=== PATIENT | female | born 1960 | race Caucasian/White ===

== ENCOUNTER 2021-01-05 12:51 | Inpatient (IN) | payer OTHER ==
[2021-01-05 13:51] LABS: Basophils % (A) 0 %; Eosinophils # (A) 0.1 k/uL (0-0.7); Eosinophils % (A) 1 %; HCT 48.5 % (34.0-46.0); HGB 16.1 gm/dL (11.4-16.0); Lymphocytes % (A) 17 %; MCH 29.8 pg (25.0-35.0); MCHC 33.3 g/dL (31.0-37.0); MCV 89.6 fL (80.0-100.0); Mean Platelet Volume 7.1; Monocytes # (A) 0.6 k/uL (0-1.0); Monocytes % (A) 5 %; Neutrophils # (A) 9.2 k/uL (1.3-7.7); Neutrophils % (A) 77 %; Platelet Count 343 k/uL (150-450); RBC 5.41 m/uL (3.80-5.40); RDW 14.4 % (11.5-15.5)
[2021-01-05 14:06] LABS: ALT 16 U/L (4-34); AST 26 U/L (14-36); African American GFR (CKD) >90 (>60 ml/min/1.73 sqM); Albumin 4.6 g/dL (3.5-5.0); Alkaline Phosphatase 135 U/L (38-126); Anion Gap 11 mmol/L; Blood Urea Nitrogen 9 mg/dL (7-17); Calcium 10.3 mg/dL (8.4-10.2); Carbon Dioxide 21 mmol/L (22-30); Chloride 103 mmol/L (98-107); Glucose 236 mg/dL (74-99); Non-African American GFR(CKD) >90 (>60 ml/min/1.73 sqM); Sodium 135 mmol/L (137-145); Total Bilirubin 0.5 mg/dL (0.2-1.3); Total Protein 7.8 g/dL (6.3-8.2)
[2021-01-05 14:17] LABS: Prothrombin Time 10.2 sec (9.0-12.0)
[2021-01-05] MEDS ORDERED: ASPIRIN 81 MG PO STA (15:07)
--- NOTE | 2021-01-05 15:09 | ED ---
General Adult HPI - General Chief complaint: Recheck/Abnormal Lab/Rx Stated complaint: Abn EKG/ Cardiac Enzymes Time Seen by Provider: 01/05/21 14:55 Source: patient, RN notes reviewed Mode of arrival: wheelchair Limitations: no limitations - History of Present Illness Initial comments: Patient is a pleasant 60-year-old female presenting to the emergency department with history of chest discomfort. Patient had an episode around 1 week ago with significant chest tightness with associated nausea and vomiting. Patient had some sweating as well. No dyspnea. Patient had mild symptoms last night. None today. None now. Patient did see her doctor and had blood work done with concern for elevated heart enzymes and was advised come to the emergency department. Patient unclear if history of similar symptoms previously. - Related Data Allergies Allergy/AdvReac Type Severity Reaction Status Date / Time bupropion [From Wellbutrin] Allergy Unknown Verified 01/05/21 13:04 Review of Systems ROS Statement: Those systems with pertinent positive or pertinent negative responses have been documented in the HPI. ROS Other: All systems not noted in ROS Statement are negative. Constitutional: Denies: fever Eyes: Denies: eye pain ENT: Denies: ear pain Respiratory: Denies: dyspnea Cardiovascular: Reports: chest pain Endocrine: Denies: fatigue Gastrointestinal: Reports: nausea Genitourinary: Denies: dysuria Musculoskeletal: Denies: back pain Skin: Denies: rash Neurological: Denies: weakness Past Medical History Past Medical History: Diabetes Mellitus, Hypertension History of Any Multi-Drug Resistant Organisms: None Reported Past Surgical History: No Surgical Hx Reported Past Psychological History: Anxiety, Depression Smoking Status: Current every day smoker Past Alcohol Use History: Rare Past Drug Use History: Marijuana General Exam Limitations: no limitations General appearance: alert, in no apparent distress Head exam: Present: normocephalic Eye exam: Present: normal appearance Neck exam: Present: normal inspection Respiratory exam: Present: normal lung sounds bilaterally Cardiovascular Exam: Present: regular rate, normal rhythm Expanded Peripheral pulses: 2+: Radial (R), Radial (L), Dorsalis Pedis (R), Dorsalis Pedis (L) GI/Abdominal exam: Present: soft. Absent: tenderness Extremities exam: Present: normal inspection. Absent: pedal edema, calf tenderness Neurological exam: Present: alert Psychiatric exam: Present: normal affect, normal mood Skin exam: Present: normal color Course Vital Signs 01/05/21 13:04 Temperature 97.9 F Pulse Rate 106 H Respiratory 20 Rate Blood Pressure 133/83 O2 Sat by Pulse 96 Oximetry - Reevaluation(s) Reevaluation #1: 01/05/21 15:11 Patient is updated on results and plan. Case was discussed with Dr. Sharp, who will consult with cardiology. EKG Findings - EKG Comments: EKG Findings:: Normal sinus rhythm with rate 99. TX 162. QRS 86. QT 388. QTC 497. Right axis. Inferior Q waves with borderline ST change. Medical Decision Making - Medical Decision Making Case also discussed with Dr. dillard, who will admit covering for Dr. Avery. - Lab Data Result diagrams: 01/05/21 13:24 01/05/21 13:24 Lab Results 01/05/21 01/05/21 01/05/21 Range/Units 13:24 13:24 13:24 WBC 12.0 H (3.8-10.6) k/uL RBC 5.41 H (3.80-5.40) m/uL Hgb 16.1 H (11.4-16.0) gm/dL Hct 48.5 H (34.0-46.0) % MCV 89.6 (80.0-100.0) fL MCH 29.8 (25.0-35.0) pg MCHC 33.3 (31.0-37.0) g/dL RDW 14.4 (11.5-15.5) % Plt Count 343 (150-450) k/uL MPV 7.1 Neutrophils % 77 % Lymphocytes % 17 % Monocytes % 5 % Eosinophils % 1 % Basophils % 0 % Neutrophils # 9.2 H (1.3-7.7) k/uL Lymphocytes # 2.0 (1.0-4.8) k/uL Monocytes # 0.6 (0-1.0) k/uL Eosinophils # 0.1 (0-0.7) k/uL Basophils # 0.0 (0-0.2) k/uL PT 10.2 (9.0-12.0) sec INR 1.0 (<1.2) APTT 27.0 (22.0-30.0) sec Sodium 135 L (137-145) mmol/L Potassium 4.0 (3.5-5.1) mmol/L Chloride 103 (98-107) mmol/L Carbon Dioxide 21 L (22-30) mmol/L Anion Gap 11 mmol/L BUN 9 (7-17) mg/dL Creatinine 0.54 (0.52-1.04) mg/dL Est GFR (CKD-EPI)AfAm >90 (>60 ml/min/1.73 sqM) Est GFR (CKD-EPI)NonAf >90 (>60 ml/min/1.73 sqM) Glucose 236 H (74-99) mg/dL Calcium 10.3 H (8.4-10.2) mg/dL Total Bilirubin 0.5 (0.2-1.3) mg/dL AST 26 (14-36) U/L ALT 16 (4-34) U/L Alkaline Phosphatase 135 H (38-126) U/L Troponin I (0.000-0.034) ng/mL Total Protein 7.8 (6.3-8.2) g/dL Albumin 4.6 (3.5-5.0) g/dL 01/05/21 Range/Units 13:24 WBC (3.8-10.6) k/uL RBC (3.80-5.40) m/uL Hgb (11.4-16.0) gm/dL Hct (34.0-46.0) % MCV (80.0-100.0) fL MCH (25.0-35.0) pg MCHC (31.0-37.0) g/dL RDW (11.5-15.5) % Plt Count (150-450) k/uL MPV Neutrophils % % Lymphocytes % % Monocytes % % Eosinophils % % Basophils % % Neutrophils # (1.3-7.7) k/uL Lymphocytes # (1.0-4.8) k/uL Monocytes # (0-1.0) k/uL Eosinophils # (0-0.7) k/uL Basophils # (0-0.2) k/uL PT (9.0-12.0) sec INR (<1.2) APTT (22.0-30.0) sec Sodium (137-145) mmol/L Potassium (3.5-5.1) mmol/L Chloride (98-107) mmol/L Carbon Dioxide (22-30) mmol/L Anion Gap mmol/L BUN (7-17) mg/dL Creatinine (0.52-1.04) mg/dL Est GFR (CKD-EPI)AfAm (>60 ml/min/1.73 sqM) Est GFR (CKD-EPI)NonAf (>60 ml/min/1.73 sqM) Glucose (74-99) mg/dL Calcium (8.4-10.2) mg/dL Total Bilirubin (0.2-1.3) mg/dL AST (14-36) U/L ALT (4-34) U/L Alkaline Phosphatase (38-126) U/L Troponin I 1.330 H* (0.000-0.034) ng/mL Total Protein (6.3-8.2) g/dL Albumin (3.5-5.0) g/dL - Radiology Data Radiology results: image reviewed Critical Care Time Critical Care Time: Yes Total Critical Care Time: 32 Disposition Clinical Impression: NSTEMI (non-ST elevated myocardial infarction) Disposition: ADMITTED IP TO THIS [facility] Condition: Serious Is patient prescribed a controlled substance at d/c from ED?: No
[2021-01-05] MEDS ORDERED: NITROGLYCERIN SL TABS 0.4 MG TAB SUBLINGUAL PRN (15:13)
[2021-01-05] MEDS ORDERED: HEPARIN SODIUM 1,000 UN/ML (10ML VL) IV ONE (15:13)
--- NOTE | 2021-01-05 15:51 | XR ---
EXAMINATION TYPE: XR chest 1V portable DATE OF EXAM: 01/05/2021 COMPARISON: NONE HISTORY: Chest pain, abnormal EKG TECHNIQUE: Single frontal view of the chest is obtained. FINDINGS: There is no focal air space opacity, pleural effusion, or pneumothorax seen. The cardiac silhouette size is within normal limits. Patient is rotated The osseous structures are intact. IMPRESSION: No acute process.
[2021-01-05] MEDS: HEPARIN SOD,PORK IN 0.45% NACL 25,000 UNIT in 0.45% NACL 1 250ML.BAG IV SCH (16:30)
[2021-01-05] MEDS ORDERED: METOPROLOL TARTRATE 25 MG TAB PO SCH (21:00)
[2021-01-05 22:03] LABS: Glucose,Whole Blood 124 mg/dL (75-99)
[2021-01-05] MEDS ORDERED: ALPRAZolam 0.5 MG TAB PO PRN (22:07)
[2021-01-05] MEDS ORDERED: NICOTINE GUM (POLACRILEX) 2 MG GUM BUCCAL PRN (22:12)
--- NOTE | 2021-01-05 22:16 | P.HPIM ---
History of Present Illness H&P Date: 01/05/21 Chief Complaint: chest pain 60-year-old female with diabetes mellitus hypertension Patient comes in due to chest pain she's been having episodes of chest pain for the past week precipitated by exceptional amount of emotional stress she is going through tough relationship with her partner. And she had lost a close friend recently. She otherwise denies any pain during physical activity. She describes the pain as heaviness retrosternal feels like indigestion however associated with vomiting and some trouble breathing and diaphoresis. Last episode was one week ago Sunday when she had an episode that lasted for hours. Then she was okay she followed up with her doctor today to get some refills on prescriptions part of the evaluation she was found to have elevated blood pressure due to noncompliance with her low pressure medications she hasn't taken any for the past 2 months. Her systolic blood pressure was in the 180s EKG was done showed Q waves in lead 3 which the patient claims that she had that from before. Patient does admit to having said than true life in general, with tobacco smoking she smokes a pack a day. She drinks occasionally and she smokes weed. No family history of premature CAD however her dad did have A. fib in his late 30s and then he had bypass surgery in his 70s. Patient reports that she had several stress tests done since she was 30 years old she had at least 4 of them last one was just a little over one year and they're all been normal. Otherwise patient denies any weight loss, coughing, sore throat, fevers or chills, denies any GI bleeding, denies any changes in her bowel or urinary habits In the ED workup showed chest x-ray no acute pathology Troponins were elevated and trending up Covid testing negative EKG confirmed a Q-wave in lead 3 otherwise normal sinus rhythm no other acute ST changes, T-wave inversion in V1 and V2 suggestive of possible left atrial enlargement Review of Systems Pertinent positives as noted in HPI. All other systems were reviewed and are negative Past Medical History Past Medical History: Diabetes Mellitus, Hypertension Additional Past Medical History / Comment(s): Patient states she has had about 4-5 stress tests that were all normal. History of Any Multi-Drug Resistant Organisms: None Reported Past Surgical History: No Surgical Hx Reported Past Anesthesia/Blood Transfusion Reactions: No Reported Reaction Past Psychological History: Anxiety, Depression Additional Psychological History / Comment(s): Patient states she lives with her and they have been fighting a lot lately and she has been stressed. Smoking Status: Current every day smoker Past Alcohol Use History: Rare Past Drug Use History: Marijuana Medications and Allergies Home Medications Medication Instructions Recorded Confirmed Type Benazepril [Lotensin] 10 mg PO DAILY 01/05/21 01/05/21 History Estriol 80%/Estradiol 2 pump TOPICAL HS 01/05/21 01/05/21 History 20%/Testosterone 2.5-2gm Cream Progesterone, Micronized 200 mg PO HS 01/05/21 01/05/21 History [Progesterone] Venlafaxine HCl [Effexor XR] 75 mg PO DAILY 01/05/21 01/05/21 History metFORMIN HCL 1,000 mg PO DAILY 01/05/21 01/05/21 History metFORMIN HCL 500 mg PO HS 01/05/21 01/05/21 History Allergies Allergy/AdvReac Type Severity Reaction Status Date / Time bupropion [From Wellbutrin] Allergy Unknown Verified 01/05/21 16:20 Physical Exam Vitals: Vital Signs Temp Pulse Pulse Resp BP BP Pulse Ox 01/05/21 21:04 74 18 126/85 97 01/05/21 16:26 76 16 126/76 97 01/05/21 13:04 97.9 F 106 H 20 133/83 96 Intake and Output 01/05/21 01/05/21 01/05/21 06:59 14:59 22:59 Intake Total 10 Balance 10 Intake: IV 10 Invasive Line 1 10 Other: Voiding Method Toilet Weight 79.379 kg 79.379 kg Constitutional: No acute distress, conversant, pleasant Eyes: Anicteric sclerae, moist conjunctiva, Pupils equal round reactive to light ENMT: NC/AT Oropharynx clear, no erythema, or exudates Neck: Supple, FROM, no masses, or JVD No carotid bruits No thyromegaly Lungs: Clear to auscultation Clear to percussion Normal respiratory effort, no accessory muscle use Cardiovascular: Heart regular in rate and rhythm, No murmurs, gallops, or rubs No peripheral edema Abdominal: Soft Nontender, no guarding, rebound or rigidity Abdomen moving with respiration Normoactive bowel sounds No hepatomegaly, No splenomegaly No palpable mass No abdominal wall hernia noted Skin: Normal temperature, tone, texture, turgor No induration No subcutaneous nodules No rash, lesions No ulcers Extremities: No digital cyanosis No clubbing Pedal pulses intact and symmetrical Radial pulses intact and symmetrical No calf tenderness Psychiatric: Alert and oriented to person, place and time Appropriate affect fair judgement Neuro Muscles Strength 5/5 in all 4 extremities Sensation to light touch grossly present throughout Cranial nerves II-XII grossly intact No focal sensory deficits Lymphatics: no palpable cervical or supraclavicular , or inguinal lymph nodes Results CBC & Chem 7: 01/05/21 13:24 01/05/21 13:24 Labs: Abnormal Lab Results - Last 24 Hours (Table) 01/05/21 01/05/21 01/05/21 Range/Units 13:24 13:24 13:24 WBC 12.0 H (3.8-10.6) k/uL RBC 5.41 H (3.80-5.40) m/uL Hgb 16.1 H (11.4-16.0) gm/dL Hct 48.5 H (34.0-46.0) % Neutrophils # 9.2 H (1.3-7.7) k/uL Sodium 135 L (137-145) mmol/L Carbon Dioxide 21 L (22-30) mmol/L Glucose 236 H (74-99) mg/dL POC Glucose (mg/dL) (75-99) mg/dL Calcium 10.3 H (8.4-10.2) mg/dL Alkaline Phosphatase 135 H (38-126) U/L Troponin I 1.330 H* (0.000-0.034) ng/mL 01/05/21 01/05/21 01/05/21 Range/Units 16:10 18:15 22:02 WBC (3.8-10.6) k/uL RBC (3.80-5.40) m/uL Hgb (11.4-16.0) gm/dL Hct (34.0-46.0) % Neutrophils # (1.3-7.7) k/uL Sodium (137-145) mmol/L Carbon Dioxide (22-30) mmol/L Glucose (74-99) mg/dL POC Glucose (mg/dL) 124 H (75-99) mg/dL Calcium (8.4-10.2) mg/dL Alkaline Phosphatase (38-126) U/L Troponin I 1.550 H* 1.870 H* (0.000-0.034) ng/mL Thrombosis Risk Factor Assmnt - Choose All That Apply Any of the Below Risk Factors Present?: Yes Each Factor Represents 1 point: Age 41-60 years Other Risk Factors: No Other congenital or acquired thrombophilia - If yes, enter type in comment: No Thrombosis Risk Factor Assessment Total Risk Factor Score: 1 Thrombosis Risk Factor Assessment Level: Low Risk Assessment and Plan Assessment: NSTEMI Cardiology consult Cardiac monitoring Trend troponins Heparin drip Aspirin statin Low-dose metoprolol Xanax when necessary for anxiety Nothing by mouth after midnight Echocardiogram EKG showed no acute this he changes Chronic conditions Hypertension uncontrolled secondary to noncompliance Resume DOROTHY inhibitor Diabetes mellitus Check A1c Insulin sliding scale Depression Denies suicidal ideation 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
[2021-01-05] MEDS: METOPROLOL TARTRATE 12.5 MG TAB PO SCH (22:24)
[2021-01-05] MEDS: NITROGLYCERIN OINT 1 INCH/GM PACKET TOPICAL SCH ×2 (22:24→23:15)
[2021-01-05] MEDS: ATORVASTATIN 40 MG TAB PO SCH (22:24)
[2021-01-05] MEDS: PANTOPRAZOLE 40 MG TABLET PO SCH (23:15)
[2021-01-06 06:17] LABS: Glucose,Whole Blood 146 mg/dL (75-99)
[2021-01-06] MEDS ORDERED: HEPARIN SODIUM,PORCINE 2,500 UNIT in SODIUM CHLORIDE 0.9% 250 ML IRRIGATION PRN (07:00)
[2021-01-06] MEDS ORDERED: HEPARIN SODIUM,PORCINE 10,000 UNIT in SODIUM CHLORIDE 0.9% 1,000 ML IRRIGATION PRN (07:00)
[2021-01-06] MEDS: INSULIN ASPART (NovoLOG) 100 UNIT/ML VIAL SQ SCH ×4 (07:01→21:06)
[2021-01-06] MEDS: NITROGLYCERIN OINT 1 INCH/GM PACKET TOPICAL SCH ×3 (07:01→17:08)
[2021-01-06] MEDS: PANTOPRAZOLE 40 MG TABLET PO SCH ×2 (07:01→17:08)
[2021-01-06] MEDS: METOPROLOL TARTRATE 12.5 MG TAB PO SCH ×3 (08:32→21:06)
[2021-01-06] MEDS: lisinopriL 10 MG TAB PO SCH (08:33)
[2021-01-06] MEDS: VENLAFAXINE HCL ER 75 MG CAP PO SCH (08:50)
[2021-01-06] MEDS ORDERED: ASPIRIN 325 MG TAB PO SCH (09:00)
[2021-01-06] MEDS ORDERED: ATORVASTATIN 80 MG TAB PO STA (09:33)
[2021-01-06] MEDS ORDERED: ASPIRIN 325 MG TAB PO STA (09:33)
[2021-01-06] MEDS ORDERED: NITROGLYCERIN SL TABS 0.4 MG TAB SUBLINGUAL PRN (09:33)
[2021-01-06] MEDS ORDERED: ALPRAZolam 0.25 MG TAB PO PRN (09:33)
[2021-01-06] MEDS ORDERED: ALPRAZolam 0.5 MG TAB PO PRN (09:33)
[2021-01-06] MEDS: SODIUM CHLORIDE 0.9% 1,000 ML in EMPTY BAG 1 BAG IV SCH ×2 (11:19→21:05)
[2021-01-06] MEDS: NICOTINE 21MG/24HR PATCH TRANSDERM SCH (11:20)
--- NOTE | 2021-01-06 11:23 | ECHOF ---
Referral Reason:nstemi MEASUREMENTS -------- HEIGHT: 162.6 cm WEIGHT: 79.4 kg BP: RVIDd: 2.0 cm (< 3.3) IVSd: 1.5 cm (0.6 - 1.1) LVIDd: 2.5 cm (3.9 - 5.3) LVPWd: 1.8 cm (0.6 - 1.1) IVSs: 2.1 cm LVIDs: 1.8 cm LVPWs: 1.9 cm LAESV Index (A-L): 13.90 ml/m Ao Diam: 3.3 cm (2.0 - 3.7) AV Cusp: 1.9 cm (1.5 - 2.6) LA Diam: 3.0 cm (2.7 - 3.8) MV EXCURSION: 10.065 mm (> 18.000) MV EF SLOPE: 61 mm/s (70 - 150) EPSS: 0.6 cm MV E Remy: 0.73 m/s MV DecT: 170 ms MV A Remy: 1.05 m/s MV E/A Ratio: 0.70 RAP: 5.00 mmHg RVSP: 9.35 mmHg FINDINGS -------- This was a technically difficult study with suboptimal views. The left ventricular size is normal. There is moderate concentric left ventricular hypertrophy. O verall left ventricular systolic function is low-normal with, an EF between 50 - 55 %. The diastoli c filling pattern is normal for the age of the patient 12.18. The right ventricle is normal in size. The left atrial size is normal. Normal LA size by volume 22+/-6 ml/m2. The right atrial size is normal. xx ml of Lumason was utilized for enhancement of images. The aortic valve is trileaflet and appears structurally normal. The mitral valve is normal. There is trace mitral regurgitation. The tricuspid valve appears structurally normal. Trace tricuspid regurgitation present. Right paxton tricular systolic pressure is normal at < 35 mmHg. There is no pulmonic regurgitation present. The aortic root size is normal. Normal inferior vena cava with normal inspiratory collapse consistent with estimated right atrial pre ssure of 5 mmHg. There is no pericardial effusion. CONCLUSIONS -------- 1. The left ventricular size is normal. 2. There is moderate concentric left ventricular hypertrophy. 3. Overall left ventricular systolic function is low-normal with, an EF between 50 - 55 %. 4. The diastolic filling pattern is normal for the age of the patient 12.18 5. There is trace mitral regurgitation. 6. Trace tricuspid regurgitation present. 7. There is no pericardial effusion. SCRAP YARD WORKER: Aziza Torres RDCS
[2021-01-06] MEDS ORDERED: LIDOCAINE 1% INJ 10MG/ML (20 ML MDV) ONE (11:28)
[2021-01-06] MEDS ORDERED: VERAPAMIL 2.5 MG/ML 2 ML AMP ONE (11:28)
[2021-01-06] MEDS ORDERED: IV FLUID CONTINUATION 1,000 ML IV ONE (11:45)
[2021-01-06] MEDS ORDERED: fentaNYL (PF) 50 MCG/ML 2 ML AMP ONE (11:45)
[2021-01-06] MEDS ORDERED: fentaNYL (PF) 50 MCG/ML 2 ML AMP IVP ONE (12:01)
[2021-01-06] MEDS ORDERED: MIDAZOLAM 2 MG/2 ML VIAL IVP ONE (12:01)
[2021-01-06] MEDS ORDERED: LIDOCAINE 1% INJ 10MG/ML (20 ML MDV) SQ ONE (12:02)
[2021-01-06] MEDS ORDERED: VERAPAMIL SYRINGE (5 MG/10 ML) INTRAARTER ONE (12:04)
[2021-01-06] MEDS ORDERED: HEPARIN SODIUM 1,000 UN/ML (10ML VL) ONE (12:05)
[2021-01-06] MEDS: HEPARIN SODIUM 1,000 UN/ML (10ML VL) IVP ONE ×3 (12:11→13:31)
[2021-01-06] MEDS ORDERED: PRASUGREL 10 MG TAB ONE (12:19)
[2021-01-06] MEDS ORDERED: PRASUGREL 10 MG TAB PO ONE (12:25)
--- NOTE | 2021-01-06 12:30 | P.CRDCN ---
History of Present Illness Consult date: 01/06/21 History of present illness: HISTORY OF PRESENT ILLNESS: This is a 60-year-old female with a past medical history significant for hypertension, diabetes, nicotine dependence, and marijuana use. 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 We have been asked to see the patient in consultation for abnormal troponins. Patient examined at the bedside emergency room. Patient reports that she began having chest pain approximately a week ago. She describes the pain as a tightness that she initially thought was indigestion. She states she would get the pain every 20 minutes and she would have episodes of nausea and vomiting. She also reports feeling very sweaty. Patient reports that pain does not get worse with activity. She states that she did not come to the hospital because of her chest pain and the reason she came to the hospital was because she needed refills on her prescriptions. She reports having 2 small episodes of chest pain since coming to the emergency room. At the time of my examination, the patient denies chest pain or pressure. EKG reveals sinus mechanism with Q waves inferiorly Chest xray negative for acute process Laboratory data: WBC 12.0. Hemoglobin 16.1. Platelet count 343. Sodium 135. Potassium 4.0. BUN 9. Creatinine 0.54. Troponin 1.330. 1.550. 1.870. Current home cardiac medications include Benzapril 10 mg daily Echocardiogram completed reveals moderate LVH, ejection fraction 50-55%, trace m itral regurgitation, trace tricuspid regurgitation REVIEW OF SYSTEMS: At the time of my exam: CONSTITUTIONAL: Denies fever or chills. HEENT: Denies blurred vision, vision changes, or eye pain. Denies hemoptysis CARDIOVASCULAR: Denies chest pain. Denies orthopnea. Denies PND. Denies palpitations RESPIRATORY: Denies shortness of breath. GASTROINTESTINAL: Denies abdominal pain. Denies nausea or vomiting. HEMATOLOGIC: Denies bleeding disorders. GENITOURINARY: Denies any blood in urine. SKIN: Denies pruitis. Denies rash. PHYSICAL EXAM: VITAL SIGNS: Reviewed. GENERAL: Well-developed in no acute distress. HEENT: Head is normocephalic. Pupils are equal, round. Sclerae anicteric. Mucous membranes of the mouth are moist. Neck supple. No JVD or thyromegaly LUNGS: Respirations even and unlabored. Lungs essentially clear to auscultation bilaterally. HEART: Regular rate and rhythm. S1 and S2 heard. ABDOMEN: Soft. Nondistended. Nontender. EXTREMITIES: Normal range of motion. No clubbing or cyanosis. Peripheral pulses intact. No lower extremity edema NEUROLOGIC: Awake and alert. Oriented x 3. ASSESSMENT: Non-STEMI Hypertension Diabetes Nicotine dependence Marijuana use PLAN: 2D echo obtained and reviewed Resume home cardiac medications Continue aspirin, lipitor, nitro, and lopressor Continue IV heparin Patient to undergo cardiac cath today with Dr. Sharp Further recommendations pending patient course Nurse practitioner note has been reviewed by physician. Signing provider agrees with the documented findings, assessment, and plan of care. Past Medical History Past Medical History: Diabetes Mellitus, Hypertension Additional Past Medical History / Comment(s): Patient states she has had about 4-5 stress tests that were all normal. History of Any Multi-Drug Resistant Organisms: None Reported Past Surgical History: No Surgical Hx Reported Past Anesthesia/Blood Transfusion Reactions: No Reported Reaction Past Psychological History: Anxiety, Depression Additional Psychological History / Comment(s): Patient states she lives with her and they have been fighting a lot lately and she has been stressed. Smoking Status: Current every day smoker Past Alcohol Use History: Rare Past Drug Use History: Marijuana Medications and Allergies Home Medications Medication Instructions Recorded Confirmed Type Benazepril [Lotensin] 10 mg PO DAILY 01/05/21 01/05/21 History Estriol 80%/Estradiol 2 pump TOPICAL HS 01/05/21 01/05/21 History 20%/Testosterone 2.5-2gm Cream Progesterone, Micronized 200 mg PO HS 01/05/21 01/05/21 History [Progesterone] Venlafaxine HCl [Effexor XR] 75 mg PO DAILY 01/05/21 01/05/21 History metFORMIN HCL 1,000 mg PO DAILY 01/05/21 01/05/21 History metFORMIN HCL 500 mg PO HS 01/05/21 01/05/21 History Allergies Allergy/AdvReac Type Severity Reaction Status Date / Time bupropion [From Wellbutrin] Allergy Unknown Verified 01/05/21 16:20 Physical Exam Vitals: Vital Signs Temp Pulse Pulse Pulse Resp BP BP 01/06/21 08:52 84 01/06/21 08:33 83 16 104/77 01/06/21 04:00 98.1 F 70 16 162/85 01/05/21 23:16 98.0 F 69 18 135/80 01/05/21 21:04 74 18 126/85 01/05/21 16:26 76 16 126/76 01/05/21 13:04 97.9 F 106 H 20 133/83 Pulse Ox 01/06/21 08:52 01/06/21 08:33 97 01/06/21 04:00 98 01/05/21 23:16 95 01/05/21 21:04 97 01/05/21 16:26 97 01/05/21 13:04 96 Intake and Output 01/05/21 01/06/21 01/06/21 22:59 06:59 14:59 Intake Total 10 63.024 Balance 10 63.024 Intake: IV 10 Invasive Line 1 10 Intake, IV Titration 63.024 Amount Heparin Sod,Pork in 0.45% 63.024 NaCl 25,000 unit In 0.45 % NaCl 1 250ml.bag @ 12 UNITS/KG/HR 9.525 mls/hr IV .Q24H [facility] Rx#: [id number] Other: Voiding Method Toilet Toilet # Voids 1 Weight 79.379 kg Results 01/05/21 13:24 01/05/21 13:24 Cardiac Enzymes 01/05/21 01/05/21 01/05/21 Range/Units 13:24 13:24 16:10 AST 26 (14-36) U/L Troponin I 1.330 H* 1.550 H* (0.000-0.034) ng/mL 01/05/21 Range/Units 18:15 AST (14-36) U/L Troponin I 1.870 H* (0.000-0.034) ng/mL Coagulation 01/05/21 01/05/21 01/05/21 Range/Units 13:24 16:10 22:20 PT 10.2 (9.0-12.0) sec APTT 27.0 27.1 31.8 H (22.0-30.0) sec CBC 01/05/21 Range/Units 13:24 WBC 12.0 H (3.8-10.6) k/uL RBC 5.41 H (3.80-5.40) m/uL Hgb 16.1 H (11.4-16.0) gm/dL Hct 48.5 H (34.0-46.0) % Plt Count 343 (150-450) k/uL Comprehensive Metabolic Panel 01/05/21 Range/Units 13:24 Sodium 135 L (137-145) mmol/L Potassium 4.0 (3.5-5.1) mmol/L Chloride 103 (98-107) mmol/L Carbon Dioxide 21 L (22-30) mmol/L BUN 9 (7-17) mg/dL Creatinine 0.54 (0.52-1.04) mg/dL Glucose 236 H (74-99) mg/dL Calcium 10.3 H (8.4-10.2) mg/dL AST 26 (14-36) U/L ALT 16 (4-34) U/L Alkaline Phosphatase 135 H (38-126) U/L Total Protein 7.8 (6.3-8.2) g/dL Albumin 4.6 (3.5-5.0) g/dL Current Medications Generic Name Dose Route Start Last Admin Trade Name Freq PRN Reason Stop Dose Admin Alprazolam 0.5 mg 01/05/21 22:07 Alprazolam 0.5 Mg Tab PO TID PRN Anxiety Aspirin 81 mg 01/07/21 09:00 Aspirin 325 Mg Tab PO DAILY KERWIN Atorvastatin Calcium 40 mg 01/05/21 21:00 01/05/21 22:24 Atorvastatin 40 Mg Tab PO 40 mg HS KERWIN Administration Heparin Sodium/Sodium Chloride 250 mls @ 9.525 mls/hr 01/05/21 15:15 01/05/21 23:07 25,000 unit/ Sodium Chloride IV 15 units/kg/hr .Q24H KERWIN 11.907 mls/hr Titration Protocol 12 UNITS/KG/HR Insulin Aspart 0 unit 01/06/21 07:30 01/06/21 07:01 Insulin Aspart (Novolog) 100 Unit/Ml Vial SQ 1 unit ACHS KERWIN Administration Protocol Lisinopril 10 mg 01/06/21 09:00 01/06/21 08:33 Lisinopril 10 Mg Tab PO 10 mg DAILY KERWIN Administration Metoprolol Tartrate 12.5 mg 01/05/21 22:15 01/05/21 22:24 Metoprolol Tartrate 12.5 Mg Tab PO 12.5 mg BID KERWIN Administration Nicotine Polacrilex 2 mg 01/05/21 22:12 Nicotine Gum (Polacrilex) 2 Mg Gum BUCCAL Q4HR PRN Nicotine Cravings Nitroglycerin 0.4 mg 01/05/21 15:13 Nitroglycerin Sl Tabs 0.4 Mg Tab SUBLINGUAL Q5M PRN Chest Pain Nitroglycerin 1 inch 01/05/21 18:00 01/06/21 07:01 Nitroglycerin Oint 1 Inch/Gm Packet TOPICAL 1 inch Q6HR KERWIN Administration Pantoprazole Sodium 40 mg 01/05/21 22:30 01/06/21 07:01 Pantoprazole 40 Mg Tablet PO 40 mg AC-BID KERWIN Administration Sodium Chloride 10 ml 01/05/21 21:00 01/06/21 08:43 Sodium Chloride 0.9% Flush 10 Ml Syringe IV 10 ml BID KERWIN Administration Venlafaxine HCl 75 mg 01/06/21 09:00 01/06/21 08:50 Venlafaxine Hcl Er 75 Mg Cap PO 75 mg DAILY KERWIN Administration Intake and Output 01/05/21 01/06/21 01/06/21 22:59 06:59 14:59 Intake Total 10 63.024 Balance 10 63.024 Intake: IV 10 Invasive Line 1 10 Intake, IV Titration 63.024 Amount Heparin Sod,Pork in 0.45% 63.024 NaCl 25,000 unit In 0.45 % NaCl 1 250ml.bag @ 12 UNITS/KG/HR 9.525 mls/hr IV .Q24H [facility] Rx#: [id number] Other: Voiding Method Toilet Toilet # Voids 1 Weight 79.379 kg 01/05/21 13:24 01/05/21 13:24
[2021-01-06] MEDS: NITROGLYCERIN 1000MCG/10ML SYRINGE INTRACORON ONE ×6 (12:35→13:14)
[2021-01-06] MEDS ORDERED: IOPAMIDOL-370 125ML BTL INJ ONE (12:41)
[2021-01-06] MEDS ORDERED: IOPAMIDOL-370 100ML BTL INJ ONE ×2 (13:16→13:31)
[2021-01-06 14:00] LABS: Glucose,Whole Blood 129 mg/dL (75-99)
--- NOTE | 2021-01-06 16:21 | P.PN ---
<Justus Marley - Last Filed: 01/06/21 16:01> Subjective Progress Note Date: 01/06/21 Hospital course: Patient is a very pleasant 60-year-old female with a past medical history of h ypertension, vsw-yunkkxk-rymwoovil diabetes mellitus, and nicotine dependence reportedly smoking one pack of cigarettes daily, and marijuana use. 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 In addition to this she lost a close friend recently and has been under significant stress, depression, and anxiety. Patient states on Sunday night she began experiencing a feeling of heaviness in her chest accompanied by nausea, diaphoresis, and mild shortness of breath. Patient states that she is stubborn and does not like going to the doctor's and thought it was just indigestion and anxiety so she decided to ride it out. Patient states the following morning she continued to feel anxious and slightly fatigued but states shortness of breath and chest pain had resolved. Patient states she had an appointment with her PCP to get some refills for her medications and after informing them of how she had been feeling a completed a workup and found her to be hypertensive, has abnormal EKG changes, and an elevated troponin. Patient was instructed to go to the emergency department at that time. Upon arrival to the emergency department, an EKG was completed revealing normal sinus rhythm and 99 bpm with prominent Q wave in lead III and T-wave inversion in leads V1, V2, aVR, and aVL. Troponins elevated at 1.330, 1.550, and 1.870. Patient was started on heparin infusion for NSTEMI. Echocardiogram revealing preserved EF between 50 and 55% with no significant valvular abnormalities. Patient admitted under our services with consultation to cardiology. Physical exam: Patient seen and fully evaluated at bedside this morning. Patient was tearful and anxious regarding recent leave being told that she was going to cardiac cath later this afternoon with Dr. Sharp. Patient currently denying having any headache, lightheadedness, chest pain, palpitations, shortness of breath, nausea, or experiencing any numbness/tingling/weakness in her extremities. Vital signs reviewed and stable. General: Nontoxic, no distress and appears stated age. Derm: Skin warm and dry, normal coloration for ethnicity. Head: Atraumatic, normocephalic and symmetric. Eyes: EOMs intact, no lid lag, and anicteric sclera Mouth: no lip lesions, mucus membranes moist Cardiovascular: regular rate and rhythm with normal S1S2, no murmur, positive posterior tibial pulses bilaterally, and cap refill < 2 seconds. Lungs: Respirations even, regular, and unlabored on room air. Lungs CTA bilaterally, no rhonchi, no rales, no wheezing, and no accessory muscle usage. Abdominal: soft, nontender to palpation, no guarding, no appreciable organomegaly Ext: ROM intact. No gross muscle atrophy, no edema, no contractures Neuro: Speech clear, face symmetrical and CN II-XII grossly intact with no noted focal neuro deficits Psych: Alert and oriented to person, place, time, and situation. Appropriate and pleasant affect. Assessment and Plan of Care: NSTEMI -EKG was completed revealing normal sinus rhythm and 99 bpm with prominent Q wave in lead III and T-wave inversion in leads V1, V2, aVR, and aVL. -Troponins elevated at 1.330, 1.550, and 1.870 -Echocardiogram revealing preserved EF between 50 and 55% with no significant valvular abnormalities -Cardiology following, plans to take patient for cardiac cath later today -Continue heparin infusion per [facility] protocol. -Continue telemetry monitoring. -Continue daily aspirin, atorvastatin, metoprolol. -Lipid profile hemoglobin A1c with a.m. labs. Hypertension Monitor vital signs and continue daily medication regimen with lisinopril and metoprolol at this time. Afr-rucfuba-ccuzecpug diabetes mellitus Hold Glucophage in place patient on glycemic protocol with NovoLog sliding scale. Check hemoglobin A1c. Nicotine dependence Patient educated on the importance of smoking cessation and the risks of continued use. Nicotine patch Depression and anxiety -Denies suicidal ideation, reports multiple life stressors at this time. -Continue daily medication regimen with the Effexor -match up worker consult for resources regarding therapist CODE STATUS: Full code DVT prophylaxis: Heparin Discussed with: Patient, patient's partner, and RN Anticipated discharge date: Clinical course to determine Anticipated discharge place: Home A total of 45 minutes was spent on the care of this complex patient more than 50% of the time was spent in counseling and care coordination. Objective - Vital Signs Vital signs: Vital Signs Temp 98.7 F 01/06/21 10:15 Pulse 80 01/06/21 10:15 Resp 16 01/06/21 10:15 BP 109/73 01/06/21 10:15 Pulse Ox 96 01/06/21 10:15 Intake & Output 01/05/21 01/06/21 01/06/21 18:59 06:59 18:59 Intake Total 73.024 141.495 Balance 73.024 141.495 Weight 79.379 kg 79.379 kg Intake: IV 10 Invasive Line 1 10 Intake, IV Titration 63.024 141.495 Amount Heparin Sod,Pork in 0.45% 63.024 141.495 NaCl 25,000 unit In 0.45 % NaCl 1 250ml.bag @ 12 UNITS/KG/HR 9.525 mls/hr IV .Q24H [facility] Rx#: [id number] Other: Voiding Method Toilet # Voids 1 - Labs CBC & Chem 7: 01/05/21 13:24 01/05/21 13:24 Labs: Abnormal Lab Results - Last 24 Hours (Table) 01/05/21 01/05/21 01/05/21 Range/Units 13:24 13:24 13:24 WBC 12.0 H (3.8-10.6) k/uL RBC 5.41 H (3.80-5.40) m/uL Hgb 16.1 H (11.4-16.0) gm/dL Hct 48.5 H (34.0-46.0) % Neutrophils # 9.2 H (1.3-7.7) k/uL APTT (22.0-30.0) sec Sodium 135 L (137-145) mmol/L Carbon Dioxide 21 L (22-30) mmol/L Glucose 236 H (74-99) mg/dL POC Glucose (mg/dL) (75-99) mg/dL Calcium 10.3 H (8.4-10.2) mg/dL Alkaline Phosphatase 135 H (38-126) U/L Troponin I 1.330 H* (0.000-0.034) ng/mL 01/05/21 01/05/21 01/05/21 Range/Units 16:10 18:15 22:02 WBC (3.8-10.6) k/uL RBC (3.80-5.40) m/uL Hgb (11.4-16.0) gm/dL Hct (34.0-46.0) % Neutrophils # (1.3-7.7) k/uL APTT (22.0-30.0) sec Sodium (137-145) mmol/L Carbon Dioxide (22-30) mmol/L Glucose (74-99) mg/dL POC Glucose (mg/dL) 124 H (75-99) mg/dL Calcium (8.4-10.2) mg/dL Alkaline Phosphatase (38-126) U/L Troponin I 1.550 H* 1.870 H* (0.000-0.034) ng/mL 01/05/21 01/06/21 01/06/21 Range/Units 22:20 06:16 08:44 WBC (3.8-10.6) k/uL RBC (3.80-5.40) m/uL Hgb (11.4-16.0) gm/dL Hct (34.0-46.0) % Neutrophils # (1.3-7.7) k/uL APTT 31.8 H 36.5 H (22.0-30.0) sec Sodium (137-145) mmol/L Carbon Dioxide (22-30) mmol/L Glucose (74-99) mg/dL POC Glucose (mg/dL) 146 H (75-99) mg/dL Calcium (8.4-10.2) mg/dL Alkaline Phosphatase (38-126) U/L Troponin I (0.000-0.034) ng/mL <Indira Ross - Last Filed: 01/06/21 22:00> Subjective Justus Marley NP rendered care for this patient independently, reviewed the findings and plan as documented in the note above. I did not physically speak with or examine the patient on this date. Cath Reviewed. Patient had a PCI to the distal RCA, PCI to the proximal PDA require staged PCI to LAD and OM in the future Objective - Vital Signs Vital signs: Vital Signs Temp 97.9 F 01/06/21 19:46 Pulse 72 01/06/21 19:46 Resp 16 01/06/21 19:46 BP 128/78 01/06/21 19:46 Pulse Ox 98 01/06/21 19:46 Intake & Output 01/06/21 01/06/21 01/07/21 06:59 18:59 06:59 Intake Total 73.024 691.495 240 Balance 73.024 691.495 240 Weight 79.379 kg Intake: IV 10 550 Invasive Line 1 10 Intake, IV Titration 63.024 141.495 0 Amount Heparin Sod,Pork in 0.45% 63.024 141.495 0 NaCl 25,000 unit In 0.45 % NaCl 1 250ml.bag @ 12 UNITS/KG/HR 9.525 mls/hr IV .Q24H [facility] Rx#: [id number] Oral 240 Other: Voiding Method Toilet Toilet # Voids 1 1 - Labs CBC & Chem 7: 01/05/21 13:24 01/05/21 13:24 Labs: Abnormal Lab Results - Last 24 Hours (Table) 01/05/21 01/05/21 01/05/21 Range/Units 13:24 22:02 22:20 APTT 31.8 H (22.0-30.0) sec POC Glucose (mg/dL) 124 H (75-99) mg/dL Hemoglobin A1c 7.2 H (4.0-6.0) % Triglycerides (0.00-149.00) mg/dL Cholesterol (0.00-200.00) mg/dL LDL Cholesterol, Calc (0.0-131.0) mg/dL 01/06/21 01/06/21 01/06/21 Range/Units 06:16 08:44 08:44 APTT 36.5 H (22.0-30.0) sec POC Glucose (mg/dL) 146 H (75-99) mg/dL Hemoglobin A1c (4.0-6.0) % Triglycerides 182.00 H (0.00-149.00) mg/dL Cholesterol 271.00 H (0.00-200.00) mg/dL LDL Cholesterol, Calc 186.3 H (0.0-131.0) mg/dL 01/06/21 01/06/21 01/06/21 Range/Units 13:58 16:32 20:31 APTT (22.0-30.0) sec POC Glucose (mg/dL) 129 H 209 H 68 L (75-99) mg/dL Hemoglobin A1c (4.0-6.0) % Triglycerides (0.00-149.00) mg/dL Cholesterol (0.00-200.00) mg/dL LDL Cholesterol, Calc (0.0-131.0) mg/dL 01/06/21 Range/Units 20:49 APTT (22.0-30.0) sec POC Glucose (mg/dL) 125 H (75-99) mg/dL Hemoglobin A1c (4.0-6.0) % Triglycerides (0.00-149.00) mg/dL Cholesterol (0.00-200.00) mg/dL LDL Cholesterol, Calc (0.0-131.0) mg/dL
[2021-01-06 16:33] LABS: Glucose,Whole Blood 209 mg/dL (75-99)
[2021-01-06 17:26] LABS: Chol/HDL Ratio 5.61 Ratio; HDL Cholesterol 48.3 mg/dL (40.00-60.00); LDL Cholesterol,Calculated 186.3 mg/dL (0.0-131.0); VLDL Calculation 36.4 mg/dL (5.00-40.00)
[2021-01-06] MEDS ORDERED: ATROPINE SULFATE 0.1 MG/ML 10ML SYRINGE IV PRN (18:28)
[2021-01-06] MEDS ORDERED: MAG HYDROX/AL HYDROX/SIMETH 30 ML CUP PO PRN (18:28)
[2021-01-06] MEDS ORDERED: RX INFO: IV CONTRAST WAS GIVEN 1 EACH MISC MISCELLANE PRN (18:28)
--- NOTE | 2021-01-06 18:28 | P.PRCINT ---
Percutaneous Coronary Int. - Percutaneous Coronary Intervention Percutaneous Coronary Intervention: PROCEDURES PERFORMED: Left heart catheterization, bilateral coronary angiography, PCI distal RCA with overlapping 3.0 x 15mm and 3.5 x 8mm Xience ONEYDA, post dilated with a 3.5NC balloon, PCI proximal PDA with a 2.0 x 18mm Richmond ONEYDA, IVUS INDICATION: NSTEMI HISTORY: Patient is a pleasant 60 year old female with history of tobacco abuse, family history of CAD who presented 1 week after having chest pain and nausea for 6-8 hours. She has been having continued off and on chest pain since that time and therefore came to ER and was found to have NSTEMI and LHC was recommended. She was noted to have mild Q waves inferiorly with minimal ST elevations inferiorly. CONSENT:I have discussed the risks, benefits and alternative therapies for the above-mentioned procedure and for both sedation/analgesia as well as necessary blood product administration, if indicated, as they pertain to this patient. The patient has indicated understanding and acceptance of the risks and procedures discussed. PROCEDURE: After the risks, benefits and alternatives of the above mentioned procedure explained in detail with the patient, informed consent was obtained. Patient was taken to the catheterization lab and prepped and draped in usual fashion. 1% lidocaine was used to anesthetize the right radial artery. A 6- Cambodian sheath was placed in the right radial artery using modified Seldinger technique. Left coronary angiography was performed with a 5-Cambodian JL 3.5 catheter and right coronary angiography was performed with a 5-Cambodian JR5 catheter in various views. A 5-Cambodian FR5 catheter was inserted into the left ventricle and pressure measurements were obtained. The decision was made to perform PCI of the RCA. Heparin was given for ACT> 250. The RCA was engaged with a 6FR AL 0.75 guide. A 0.014 BMW wire was adv anced into the PDA. The PDA as well as the distal RCA was ballooned with a 2.0 x 12mm balloon. The distal RCA was then ballooned with a 2.5 x 12mm balloon. Next a 2.0 x 18mm Richmond stent was attempted to be advanced into the PDA however was not able to advance. Therefore a second 0.014 BMW wire was advanced into the PDA. With the help of a guideliner the 2.0 x 18mm Richmond stent was able to be advanced and deployed at the proximal PDA. A 3.0 x 15mm Xience ONEYDA was advanced to the distal RCA lesion and deployed. This was post dilated with a 3.5 NC balloon. There was a filling defect at the distal edge of the stent and therefore this was covered with a 3.5 x 8mm Xience ONEYDA. Post angioplasty IVUS was performed which showed good stent apposition with no dissection. The wires were pulled and final angiograms were obtained. Pre intervention there was VALDO 2 flow in the PDA and 95% distal RCA and 90% PDA stenosis and post intervention there was < 10% stenosis and VALDO 3 flow. The right radial sheath was removed and a TR band was placed with hemostasis achieved. The patient tolerated the procedure well. Patient was transported back to the post catheterization holding area in stable condition. Conscious Sedation: Patient was monitored under the direct supervision of vision of myself for conscious sedation using Versed and fentanyl for a total duration of 90 minutes HEMODYNAMICS: Aortic: 100/62 LV: 101/3, LVEDP 10 SELECTIVE CORONARY ARTERIOGRAPHY: LEFT MAIN: The left main is a large caliber vessel which bifurcates into the LAD and circumflex. There is no significant stenosis. LEFT ANTERIOR DESCENDING CORONARY ARTERY: LAD is a large caliber vessel which wraps around the apex. There is diffuse proximal LAD 20-40% stenosis. The mid LAD has a more focal 85% stenosis just after and involving a small caliber diagonal 1 branch resulting in ostial diagonal 1 40-50% stenosis. LEFT CIRCUMFLEX CORONARY ARTERY: Left circumflex is a moderate caliber vessel. OM1 is small to moderate caliber and has a 95% stenosis. OM2 is small caliber approximately 1.75mm and has a 70% stenosis. RIGHT CORONARY ARTERY: The right coronary artery is a large caliber vessel which gives off a PDA and PLV branch and is the dominant vessel. There is diffuse mid 20-30% stenosis and a 95% distal RCA stenosis. The proximal PDA has a long 80- 90% stenosis. FINAL IMPRESSION: 1. CAD as described above with 95% distal RCA, 80-90% proximal PDA, 85% mid LAD, 95% OM1 and 70% OM2 stenosis. 2. PCI distal RCA with overlapping 3.0 x 15mm and 3.5 x 8mm Xience ONEYDA, post dilated with a 3.5 NC balloon, PCI proximal PDA with a 2.0 x 18mm Renaldo ONEYDA 3. Normal left sided filling pressures PLAN: 1. Aggressive risk factor modification per most recent ACC/AHA guidelines. 2. Continue dual antiplatelets for 12 months. 3. Staged PCI LAD and OM in the future
[2021-01-06 20:45] LABS: Glucose,Whole Blood 68 mg/dL (75-99)
[2021-01-06 20:51] LABS: Glucose,Whole Blood 125 mg/dL (75-99)
[2021-01-06] MEDS: HEPARIN SOD,PORK IN 0.45% NACL 25,000 UNIT in 0.45% NACL 1 250ML.BAG IV SCH (21:04)
[2021-01-06] MEDS: ATORVASTATIN 40 MG TAB PO SCH (21:06)
[2021-01-06] MEDS: SODIUM CHLORIDE 0.9% 1,000 ML IV SCH (21:12)
[2021-01-07] MEDS: NITROGLYCERIN OINT 1 INCH/GM PACKET TOPICAL SCH ×3 (00:38→12:13)
[2021-01-07] MEDS ORDERED: ACETAMINOPHEN TAB 325 MG TAB PO PRN (00:50)
[2021-01-07 04:44] LABS: African American GFR (CKD) >90 (>60 ml/min/1.73 sqM); Non-African American GFR(CKD) >90 (>60 ml/min/1.73 sqM)
[2021-01-07] MEDS ORDERED: HEPARIN SODIUM 1,000 UN/ML (10ML VL) IV PRN (04:54)
[2021-01-07] MEDS: SODIUM CHLORIDE 0.9% 1,000 ML in EMPTY BAG 1 BAG IV SCH ×2 (05:01→21:23)
[2021-01-07 06:33] LABS: Glucose,Whole Blood 128 mg/dL (75-99)
[2021-01-07] MEDS: INSULIN ASPART (NovoLOG) 100 UNIT/ML VIAL SQ SCH ×4 (06:39→21:12)
[2021-01-07] MEDS: SODIUM CHLORIDE 0.9% 1,000 ML IV SCH ×2 (06:40→21:23)
[2021-01-07] MEDS: PANTOPRAZOLE 40 MG TABLET PO SCH ×2 (06:40→17:26)
[2021-01-07] MEDS: lisinopriL 10 MG TAB PO SCH (08:11)
[2021-01-07] MEDS: METOPROLOL TARTRATE 12.5 MG TAB PO SCH ×2 (08:11→21:11)
[2021-01-07] MEDS: ASPIRIN 81 MG PO SCH (08:11)
[2021-01-07] MEDS: PRASUGREL 10 MG TAB PO SCH (08:11)
[2021-01-07] MEDS: NICOTINE 21MG/24HR PATCH TRANSDERM SCH (08:11)
[2021-01-07] MEDS: VENLAFAXINE HCL ER 75 MG CAP PO SCH (08:11)
[2021-01-07 11:41] LABS: Glucose,Whole Blood 129 mg/dL (75-99)
[2021-01-07 12:29] VITALS: BMI 29.9
--- NOTE | 2021-01-07 12:37 | P.PN ---
Subjective Progress Note Date: 01/07/21 HISTORY OF PRESENT ILLNESS: This is a 60-year-old female with a past medical history significant for hypertension, diabetes, nicotine dependence, and marijuana use. 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 We have been asked to see the patient in consultation for abnormal troponins. Patient examined at the bedside emergency room. Patient reports that she began having chest pain approximately a week ago. She describes the pain as a tightness that she initially thought was indigestion. She states she would get the pain every 20 minutes and she would have episodes of nausea and vomiting. She also reports feeling very sweaty. Patient reports that pain does not get worse with activity. She states that she did not come to the hospital because of her chest pain and the reason she came to the hospital was because she needed refills on her prescriptions. She reports having 2 small episodes of chest pain since coming to the emergency room. At the time of my examination, the patient denies chest pain or pressure. EKG reveals sinus mechanism with Q waves inferiorly Chest xray negative for acute process Laboratory data: WBC 12.0. Hemoglobin 16.1. Platelet count 343. Sodium 135. Potassium 4.0. BUN 9. Creatinine 0.54. Troponin 1.330. 1.550. 1.870. Current home cardiac medications include Benzapril 10 mg daily Echocardiogram completed reveals moderate LVH, ejection fraction 50-55%, trace mitral regurgitation, trace tricuspid regurgitation 01/07/2021 Patient is status post cardiac catheterization with Dr. Sharp with stenting to the RCA 2 and PDA 1. Patient currently denies chest pain or pressure. Denies shortness of breath. Vital signs are stable. She remains on IV heparin. PHYSICAL EXAM: VITAL SIGNS: Reviewed. GENERAL: Well-developed in no acute distress. HEENT: Head is normocephalic. Pupils are equal, round. Sclerae anicteric. Mucous membranes of the mouth are moist. Neck supple. No JVD or thyromegaly LUNGS: Respirations even and unlabored. Lungs essentially clear to auscultation bilaterally. HEART: Regular rate and rhythm. S1 and S2 heard. ABDOMEN: Soft. Nondistended. Nontender. EXTREMITIES: Normal range of motion. No clubbing or cyanosis. Peripheral pulses intact. No lower extremity edema NEUROLOGIC: Awake and alert. Oriented x 3. ASSESSMENT: Non-STEMI Hypertension Diabetes Nicotine dependence Marijuana use PLAN: Continue current cardiac medications Continue dual antiplatelet therapy with aspirin and Effient Continue IV heparin. Discontinue nitro. Patient will require stenting of the LAD and OM. This will likely be completed on an outpatient basis per Dr. Sharp Further recommendations pending patient course Nurse practitioner note has been reviewed by physician. Signing provider agrees with the documented findings, assessment, and plan of care. Objective - Vital Signs Vital signs: Vital Signs Temp 97.7 F 01/07/21 12:00 Pulse 74 01/07/21 12:00 Resp 18 01/07/21 12:00 BP 119/67 01/07/21 12:00 Pulse Ox 95 01/07/21 12:00 Intake & Output 01/06/21 01/07/21 01/07/21 18:59 06:59 18:59 Intake Total 691.495 329.303 Balance 691.495 329.303 Weight 79.3 kg 79.3 kg Intake: IV 550 Intake, IV Titration 141.495 89.303 Amount Heparin Sod,Pork in 0.45% 141.495 89.303 NaCl 25,000 unit In 0.45 % NaCl 1 250ml.bag @ 12 UNITS/KG/HR 9.525 mls/hr IV .Q24H [facility] Rx#: [id number] Oral 240 Other: Voiding Method Toilet # Voids 1 3 - Labs CBC & Chem 7: 01/05/21 13:24 01/07/21 04:03 Labs: Abnormal Lab Results - Last 24 Hours (Table) 01/05/21 01/06/21 01/06/21 Range/Units 13:24 08:44 13:58 APTT (22.0-30.0) sec POC Glucose (mg/dL) 129 H (75-99) mg/dL Hemoglobin A1c 7.2 H (4.0-6.0) % Triglycerides 182.00 H (0.00-149.00) mg/dL Cholesterol 271.00 H (0.00-200.00) mg/dL LDL Cholesterol, Calc 186.3 H (0.0-131.0) mg/dL 01/06/21 01/06/21 01/06/21 Range/Units 16:32 20:31 20:49 APTT (22.0-30.0) sec POC Glucose (mg/dL) 209 H 68 L 125 H (75-99) mg/dL Hemoglobin A1c (4.0-6.0) % Triglycerides (0.00-149.00) mg/dL Cholesterol (0.00-200.00) mg/dL LDL Cholesterol, Calc (0.0-131.0) mg/dL 01/07/21 01/07/21 01/07/21 Range/Units 04:03 06:21 07:21 APTT 34.9 H 67.6 H (22.0-30.0) sec POC Glucose (mg/dL) 128 H (75-99) mg/dL Hemoglobin A1c (4.0-6.0) % Triglycerides (0.00-149.00) mg/dL Cholesterol (0.00-200.00) mg/dL LDL Cholesterol, Calc (0.0-131.0) mg/dL 01/07/21 Range/Units 11:35 APTT (22.0-30.0) sec POC Glucose (mg/dL) 129 H (75-99) mg/dL Hemoglobin A1c (4.0-6.0) % Triglycerides (0.00-149.00) mg/dL Cholesterol (0.00-200.00) mg/dL LDL Cholesterol, Calc (0.0-131.0) mg/dL
--- NOTE | 2021-01-07 16:13 | P.PN ---
<Justus Marley - Last Filed: 01/07/21 16:03> Subjective Progress Note Date: 01/07/21 Hospital course: Patient is a very pleasant 60-year-old female with a past medical history of h ypertension, gqh-rakztza-xwxlworbc diabetes mellitus, and nicotine dependence reportedly smoking one pack of cigarettes daily, and marijuana use. 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 In addition to this she lost a close friend recently and has been under significant stress, depression, and anxiety. Patient states on Sunday night she began experiencing a feeling of heaviness in her chest accompanied by nausea, diaphoresis, and mild shortness of breath. Patient states that she is stubborn and does not like going to the doctor's and thought it was just indigestion and anxiety so she decided to ride it out. Patient states the following morning she continued to feel anxious and slightly fatigued but states shortness of breath and chest pain had resolved. Patient states she had an appointment with her PCP to get some refills for her medications and after informing them of how she had been feeling a completed a workup and found her to be hypertensive, has abnormal EKG changes, and an elevated troponin. Patient was instructed to go to the emergency department at that time. Upon arrival to the emergency department, an EKG was completed revealing normal sinus rhythm and 99 bpm with prominent Q wave in lead III and T-wave inversion in leads V1, V2, aVR, and aVL. Troponins elevated at 1.330, 1.550, and 1.870. Patient was started on heparin infusion for NSTEMI. Echocardiogram revealing preserved EF between 50 and 55% with no significant valvular abnormalities. Patient admitted under our services with consultation to cardiology. Patient underwent cardiac catheterization with Dr. Sharp 01/06/21 and was found to have coronary artery disease with 95% occlusion to distal RCA, 80-90% proximal PDA, 85% mid LAD, 95% MEGAN and 70% OM 2 stenosis. Patient underwent stenting to RCA and PDA, plans to take patient back to [facility] for staged PCI to LAD and OM. Physical exam: Patient seen and fully evaluated at bedside this morning. Patient appeared to be in better spirits today. She underwent cardiac catheterization with Dr. Sharp yesterday afternoon in which patient was found to have coronary artery disease with 95% occlusion to distal RCA, 80-90% proximal PDA, 85% mid LAD, 95% MEGAN and 70% OM 2 stenosis. Patient underwent stenting to RCA and PDA, plans to take patient back to [facility] for staged PCI to LAD and OM. Patient remains on heparin infusion. Cardiac cath access site right wrist showing no signs of bleeding or hematoma. Patient denies having any numbness/tingling/pain in right hand. Patient denies having any other complaints at this time including headache, lightheadedness, dizziness, chest pain, palpitations, or shortness of breath. She reports feeling last anxious. Vital signs reviewed and stable. General: Nontoxic, no distress and appears stated age. Derm: Skin warm and dry, normal coloration for ethnicity. Post cardiac cath access site right wrist showing no signs of bleeding or hematoma. Head: Atraumatic, normocephalic and symmetric. Eyes: EOMs intact, no lid lag, and anicteric sclera Mouth: no lip lesions, mucus membranes moist Cardiovascular: regular rate and rhythm with normal S1S2, no murmur, positive posterior tibial pulses bilaterally, and cap refill < 2 seconds. Lungs: Respirations even, regular, and unlabored on room air. Lungs CTA bilaterally, no rhonchi, no rales, no wheezing, and no accessory muscle usage. Abdominal: soft, nontender to palpation, no guarding, no appreciable organomegaly Ext: ROM intact. No gross muscle atrophy, no edema, no contractures Neuro: Speech clear, face symmetrical and CN II-XII grossly intact with no noted focal neuro deficits Psych: Alert and oriented to person, place, time, and situation. Appropriate and pleasant affect. Assessment and Plan of Care: NSTEMI -EKG was completed revealing normal sinus rhythm and 99 bpm with prominent Q wave in lead III and T-wave inversion in leads V1, V2, aVR, and aVL. -Troponins elevated at 1.330, 1.550, and 1.870 -Echocardiogram revealing preserved EF between 50 and 55% with no significant valvular abnormalities -Cardiology following, plans to take patient back to [facility] for staged PCI to LAD and OM. -01/06/21: Patient underwent stenting to RCA and PDA. Cardiology recommending dual antiplatelet therapy for 12 months. -Continue heparin infusion per ACS protocol. -Continue telemetry monitoring. -Continue daily aspirin, atorvastatin, metoprolol. -Lipid profile showing elevated triglycerides at 182, elevated cholesterol at 271, elevated LDL at 186.3. -Hemoglobin A1c 7.2%, likely add Januvia in addition to Glucophage upon discharge. Hypertension Monitor vital signs and continue daily medication regimen with lisinopril and metoprolol at this time. Ipx-rncihnw-wetzsvqyo diabetes mellitus Hold Glucophage in place patient on glycemic protocol with NovoLog sliding scale. -Hemoglobin A1c 7.2%, likely add Januvia in addition to Glucophage upon discharge. Nicotine dependence Patient educated on the importance of smoking cessation and the risks of continued use. Nicotine patch Depression and anxiety -Denies suicidal ideation, reports multiple life stressors at this time. -Continue daily medication regimen with the Effexor -printed circuit board reworker consult for resources regarding therapist CODE STATUS: Full code DVT prophylaxis: Heparin Discussed with: Patient and RN Anticipated discharge date: Clinical course to determine Anticipated discharge place: Home A total of 45 minutes was spent on the care of this complex patient more than 50% of the time was spent in counseling and care coordination. Objective - Vital Signs Vital signs: Vital Signs Temp 98 F 01/07/21 08:00 Pulse 84 01/07/21 08:00 Resp 16 01/07/21 08:00 BP 115/75 01/07/21 08:00 Pulse Ox 97 01/07/21 08:00 Intake & Output 01/06/21 01/07/21 01/07/21 18:59 06:59 18:59 Intake Total 691.495 329.303 Balance 691.495 329.303 Weight 79.3 kg Intake: IV 550 Intake, IV Titration 141.495 89.303 Amount Heparin Sod,Pork in 0.45% 141.495 89.303 NaCl 25,000 unit In 0.45 % NaCl 1 250ml.bag @ 12 UNITS/KG/HR 9.525 mls/hr IV .Q24H [facility] Rx#: [id number] Oral 240 Other: Voiding Method Toilet # Voids 1 3 - Labs CBC & Chem 7: 01/05/21 13:24 01/07/21 04:03 Labs: Abnormal Lab Results - Last 24 Hours (Table) 01/05/21 01/06/21 01/06/21 Range/Units 13:24 08:44 13:58 APTT (22.0-30.0) sec POC Glucose (mg/dL) 129 H (75-99) mg/dL Hemoglobin A1c 7.2 H (4.0-6.0) % Triglycerides 182.00 H (0.00-149.00) mg/dL Cholesterol 271.00 H (0.00-200.00) mg/dL LDL Cholesterol, Calc 186.3 H (0.0-131.0) mg/dL 01/06/21 01/06/21 01/06/21 Range/Units 16:32 20:31 20:49 APTT (22.0-30.0) sec POC Glucose (mg/dL) 209 H 68 L 125 H (75-99) mg/dL Hemoglobin A1c (4.0-6.0) % Triglycerides (0.00-149.00) mg/dL Cholesterol (0.00-200.00) mg/dL LDL Cholesterol, Calc (0.0-131.0) mg/dL 01/07/21 01/07/21 01/07/21 Range/Units 04:03 06:21 07:21 APTT 34.9 H 67.6 H (22.0-30.0) sec POC Glucose (mg/dL) 128 H (75-99) mg/dL Hemoglobin A1c (4.0-6.0) % Triglycerides (0.00-149.00) mg/dL Cholesterol (0.00-200.00) mg/dL LDL Cholesterol, Calc (0.0-131.0) mg/dL <Indira Ross - Last Filed: 01/07/21 22:33> Subjective Justus Marley NP rendered care for this patient independently, reviewed the findings and plan as documented in the note above. I did not physically speak with or examine the patient on this date. Patient's Lipitor increased to 80 mg secondary to severe hyperlipidemia. Objective - Vital Signs Vital signs: Vital Signs Temp 98.1 F 01/07/21 19:50 Pulse 79 01/07/21 19:50 Resp 18 01/07/21 19:50 BP 139/81 01/07/21 19:50 Pulse Ox 99 01/07/21 19:50 Intake & Output 01/07/21 01/07/21 01/08/21 06:59 18:59 06:59 Intake Total 329.303 222 Output Total 260 Balance 329.303 222 -260 Weight 79.3 kg 79.3 kg Intake: Intake, IV Titration 89.303 Amount Heparin Sod,Pork in 0.45% 89.303 NaCl 25,000 unit In 0.45 % NaCl 1 250ml.bag @ 12 UNITS/KG/HR 9.525 mls/hr IV .Q24H [facility] Rx#: [id number] Oral 240 222 Output: Urine 260 Other: Voiding Method Toilet Toilet # Voids 3 # Bowel Movements 1 - Labs CBC & Chem 7: 01/05/21 13:24 01/07/21 04:03 Labs: Abnormal Lab Results - Last 24 Hours (Table) 01/07/21 01/07/21 01/07/21 Range/Units 04:03 06:21 07:21 APTT 34.9 H 67.6 H (22.0-30.0) sec POC Glucose (mg/dL) 128 H (75-99) mg/dL 01/07/21 01/07/21 01/07/21 Range/Units 11:35 16:32 19:58 APTT (22.0-30.0) sec POC Glucose (mg/dL) 129 H 156 H 150 H (75-99) mg/dL
[2021-01-07 16:42] LABS: Glucose,Whole Blood 156 mg/dL (75-99)
[2021-01-07 19:59] LABS: Glucose,Whole Blood 150 mg/dL (75-99)
[2021-01-07] MEDS: ATORVASTATIN 40 MG TAB PO SCH (21:12)
[2021-01-08 05:54] LABS: Glucose,Whole Blood 139 mg/dL (75-99)
[2021-01-08] MEDS: INSULIN ASPART (NovoLOG) 100 UNIT/ML VIAL SQ SCH (06:45)
[2021-01-08] MEDS: PANTOPRAZOLE 40 MG TABLET PO SCH (06:45)
[2021-01-08 08:40] LABS: Basophils % (A) 0 %; Eosinophils % (A) 0 %; HCT 42.6 % (34.0-46.0); HGB 13.9 gm/dL (11.4-16.0); Lymphocytes # (A) 1.8 k/uL (1.0-4.8); Lymphocytes % (A) 22 %; MCH 29.8 pg (25.0-35.0); MCHC 32.7 g/dL (31.0-37.0); Mean Platelet Volume 6.7; Monocytes # (A) 0.5 k/uL (0-1.0); Monocytes % (A) 6 %; Neutrophils # (A) 5.8 k/uL (1.3-7.7); Neutrophils % (A) 71 %; Platelet Count 289 k/uL (150-450); RBC 4.68 m/uL (3.80-5.40); RDW 14.2 % (11.5-15.5); WBC 8.2 k/uL (3.8-10.6)
[2021-01-08] MEDS: NICOTINE 21MG/24HR PATCH TRANSDERM SCH (08:45)
[2021-01-08] MEDS: lisinopriL 10 MG TAB PO SCH (08:45)
[2021-01-08] MEDS: PRASUGREL 10 MG TAB PO SCH (08:45)
[2021-01-08] MEDS: ASPIRIN 81 MG PO SCH (08:45)
[2021-01-08] MEDS: METOPROLOL TARTRATE 12.5 MG TAB PO SCH (08:45)
[2021-01-08] MEDS: VENLAFAXINE HCL ER 75 MG CAP PO SCH (08:47)
[2021-01-08 08:56] LABS: African American GFR (CKD) >90 (>60 ml/min/1.73 sqM); Anion Gap 6 mmol/L; Blood Urea Nitrogen 11 mg/dL (7-17); Calcium 9.7 mg/dL (8.4-10.2); Carbon Dioxide 27 mmol/L (22-30); Chloride 106 mmol/L (98-107); Glucose 156 mg/dL (74-99); Non-African American GFR(CKD) >90 (>60 ml/min/1.73 sqM); Potassium 4.5 mmol/L (3.5-5.1); Sodium 139 mmol/L (137-145)
[2021-01-08 11:58] LABS: Glucose,Whole Blood 110 mg/dL (75-99)
[2021-01-08 12:07] VITALS: BP 110/67; PULSE 70; RESP 14; TEMP 97.9
--- NOTE | 2021-01-08 13:03 | P.DS ---
<Justus Marley - Last Filed: 01/08/21 12:53> Providers Expected date of discharge: 01/08/21 Hospital Course: Discharge Diagnosis: NSTEMI Hypertension Vwa-gsetaro-prsjdubnz diabetes mellitus Nicotine dependence Depression and anxiety Hospital Course: Patient is a very pleasant 60-year-old female with a past medical history of hypertension, sug-zitpiyj-vdalwgssm diabetes mellitus, and nicotine dependence reportedly smoking one pack of cigarettes daily, and marijuana use. 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 In addition to this she lost a close friend recently and has been under significant stress, depression, and anxiety. Patient states on Sunday night she began experiencing a feeling of heaviness in her chest accompanied by nausea, diaphoresis, and mild shortness of breath. Patient states that she is stubborn and does not like going to the doctor's and thought it was just indigestion and anxiety so she decided to ride it out. Patient states the following morning she continued to feel anxious and slightly fatigued but states shortness of breath and chest pain had resolved. Patient states she had an appointment with her PCP to get some refills for her medications and after informing them of how she had been feeling a completed a workup and found her to be hypertensive, has abnormal EKG changes, and an elevated troponin. Patient was instructed to go to the emergency department at that time. Upon arrival to the emergency department, an EKG was completed revealing normal sinus rhythm and 99 bpm with prominent Q wave in lead III and T-wave inversion in leads V1, V2, aVR, and aVL. Troponins elevated at 1.330, 1.550, and 1.870. Patient was started on heparin infusion for NSTEMI. Echocardiogram revealing preserved EF between 50 and 55% with no significant valvular abnormalities. Patient admitted under our services with consultation to cardiology. Patient underwent cardiac catheterization with Dr. Sharp 01/06/21 and was found to have coronary artery disease with 95% occlusion to distal RCA, 80-90% proximal PDA, 85% mid LAD, 95% MEGAN and 70% OM 2 stenosis. Patient underwent stenting to RCA and PDA. Cardiology planning to take patient back to laboratory courier for scheduled staged PCI to LAD and OM. Pt has been placed on dual antiplatelet therapy with Effient and aspirin, started on metoprolol 12.5 mg twice daily as well as atorvastatin 80 mg nightly. Lipid profile showing elevated triglycerides at 182, elevated cholesterol at 271, elevated LDL at 186.3. Patient cleared from cardiac standpoint for discharge home, patient to follow-up outpatient with Dr. Sharp this week for further scheduling of cardiac cath to complete staged PCIs. Patient has remained free of chest pain since stent placement. She has been ambulating up and down the halls and completing laps around the unit and denies experiencing any chest pain, shortness of breath, or dyspnea with exertion. Vital signs stable. Labs unremarkable. Patient medically stable for discharge home at this time. Strongly encouraged on the importance of smoking cessation. Physical exam: Vital signs reviewed and stable. General: Nontoxic, no distress and appears stated age. Derm: Skin warm and dry, normal coloration for ethnicity. Post cardiac cath access site right wrist showing no signs of bleeding or hematoma. Head: Atraumatic, normocephalic and symmetric. Eyes: EOMs intact, no lid lag, and anicteric sclera Mouth: no lip lesions, mucus membranes moist Cardiovascular: regular rate and rhythm with normal S1S2, no murmur, positive posterior tibial pulses bilaterally, and cap refill < 2 seconds. Lungs: Respirations even, regular, and unlabored on room air. Lungs CTA bilaterally, no rhonchi, no rales, no wheezing, and no accessory muscle usage. Abdominal: soft, nontender to palpation, no guarding, no appreciable organomegaly Ext: ROM intact. No gross muscle atrophy, no edema, no contractures Neuro: Speech clear, face symmetrical and CN II-XII grossly intact with no noted focal neuro deficits Psych: Alert and oriented to person, place, time, and situation. Appropriate and pleasant affect. A total of 45 minutes of time were spent preparing this complex discharge summary. Patient Condition at Discharge: Stable Plan - Discharge Summary Discharge Rx Participant: No New Discharge Prescriptions: New Prasugrel [Effient] 10 mg PO DAILY 30 Days #30 tab Metoprolol Tartrate [Lopressor] 12.5 mg PO BID 30 Days #60 tab Aspirin 81 mg PO DAILY 30 Days #30 tab Nicotine 21Mg/24Hr Patch [Habitrol] 1 patch TRANSDERM DAILY 30 Days #30 patch Atorvastatin [Lipitor] 80 mg PO HS 30 Days #30 tab Pantoprazole [Protonix] 40 mg PO AC-BID 30 Days #60 tab Continue Progesterone, Micronized [Progesterone] 200 mg PO HS Estriol 80%/Estradiol 20%/Testosterone 2.5-2gm Cream 2 pump TOPICAL HS metFORMIN HCL 1,000 mg PO DAILY Venlafaxine HCl [Effexor XR] 75 mg PO DAILY Benazepril [Lotensin] 10 mg PO DAILY metFORMIN HCL 500 mg PO HS Discharge Medication List Benazepril [Lotensin] 10 mg PO DAILY 01/05/21 [History] Estriol 80%/Estradiol 20%/Testosterone 2.5-2gm Cream 2 pump TOPICAL HS 01/05/21 [History] Progesterone, Micronized [Progesterone] 200 mg PO HS 01/05/21 [History] Venlafaxine HCl [Effexor XR] 75 mg PO DAILY 01/05/21 [History] metFORMIN HCL 1,000 mg PO DAILY 01/05/21 [History] metFORMIN HCL 500 mg PO HS 01/05/21 [History] Aspirin 81 mg PO DAILY 30 Days #30 tab 01/08/21 [Rx] Atorvastatin [Lipitor] 80 mg PO HS 30 Days #30 tab 01/08/21 [Rx] Metoprolol Tartrate [Lopressor] 12.5 mg PO BID 30 Days #60 tab 01/08/21 [Rx] Nicotine 21Mg/24Hr Patch [Habitrol] 1 patch TRANSDERM DAILY 30 Days #30 patch 01/08/21 [Rx] Pantoprazole [Protonix] 40 mg PO AC-BID 30 Days #60 tab 01/08/21 [Rx] Prasugrel [Effient] 10 mg PO DAILY 30 Days #30 tab 01/08/21 [Rx] Follow up Appointment(s)/Referral(s): Ata Avery MD [Primary Care Provider] - 1-2 days Arvin Sharp DO [STAFF PHYSICIAN] - 1-2 Days Patient Instructions/Handouts: *Surgery [facility] - After Heart Catheterization - Supervisor [employer] Instructions Activity/Diet/Wound Care/Special Instructions: Activity: As tolerated. Take breaks as needed. Diet: Heart healthy and carb consistent diet. Avoid salts, or foods with hidden salts such as canned or boxed foods and frozen dinners. Extra salt makes your heart work harder and traps the fluid in your body for longer. Special Instructions: Take all of your medications as directed and remember to keep all of your doctor's appointments and follow-up as needed. Remember to call Dr. Sharp's office first thing Sunday morning to schedule your next procedure. Please take all of your medications as directed without missing any doses. It is also important for you to follow-up with your primary doctor, for repeat cholesterol profile in 3 months, as additional medications may be warranted. Thank you for allowing us to participate in your care, it was truly a pleasure having you for our patient!!! Discharge/Stand Alone Forms: Who Do I Call?, Community Resources, Help In The Home, Outpatient Counseling Discharge Disposition: HOME SELF-CARE <Indira Ross - Last Filed: 01/08/21 19:13> Providers Date of admission: 01/05/21 15:13 Attending physician: Indira Ross DO Consults: 01/05/21 15:13 Consult Physician Urgent Consulting Provider: Arvin Sharp Consult Reason/Comments: nstemi Do you want consulting provider notified?: Already Contacted 01/06/21 18:28 Consult Physician Routine Consulting Provider: [facility] Consult Reason/Comments: Post Interventional patient Do you want consulting provider notified?: Already Contacted Primary care physician: Kiet Avery [facility] Course: Justus Marley NP rendered care for this patient independently, reviewed the f indings and plan as documented in the note above. I did not physically speak with or examine the patient on this date.
[2021-01-08] MEDS ORDERED: ATORVASTATIN 80 MG TAB PO SCH (21:00)
== END 2021-01-08 13:30 | disposition home or self-care (01) | DRG 247 ==
LOC: EC 12:51 → 3SCARD 15:13
PROVIDERS: ADMIT Internal Medicine; ATTEND Internal Medicine
PROC: 027136Z Dilation of Coronary Artery, Two Arteries with Three Drug-eluting Intraluminal Devices, Percutaneous Approach (ICD-10-PCS; principal; 2021-01-06 12:25)
PROC: 4A023N7 Measurement of Cardiac Sampling and Pressure, Left Heart, Percutaneous Approach (ICD-10-PCS; 2021-01-06 12:25)
PROC: B2111ZZ Fluoroscopy of Multiple Coronary Arteries using Low Osmolar Contrast (ICD-10-PCS; 2021-01-06 12:25)
DX: I21.4 Non-ST elevation (NSTEMI) myocardial infarction (principal); E11.9 Type 2 diabetes mellitus without complications; E78.00 Pure hypercholesterolemia, unspecified; E78.1 Pure hyperglyceridemia; E78.5 Hyperlipidemia, unspecified; F17.210 Nicotine dependence, cigarettes, uncomplicated; F32.9 Major depressive disorder, single episode, unspecified; F41.9 Anxiety disorder, unspecified; I10 Essential (primary) hypertension; I25.10 Atherosclerotic heart disease of native coronary artery without angina pectoris; Z20.822 Contact with and (suspected) exposure to COVID-19; Z79.84 Long term (current) use of oral hypoglycemic drugs; Z79.899 Other long term (current) drug therapy; Z91.19 Patient's noncompliance with other medical treatment and regimen
CPT/HCPCS: 36415; 71045; 80048; 80053; 80061; 82565; 83036; 84484; 85025; 85610; 85730; 87635; 93005; 93306; 93458; 94760; 99291

== ENCOUNTER 2021-01-20 08:39 | Day surgery (SDC) | payer OTHER ==
[~2021-01-20 08:39] MED LIST: ALPRAZolam 0.25 MG TAB PO PRN; ALPRAZolam 0.5 MG TAB PO PRN; ASPIRIN 325 MG TAB PO STA; HEPARIN SODIUM,PORCINE 10,000 UNIT in SODIUM CHLORIDE 0.9% 1,000 ML IRRIGATION PRN; HEPARIN SODIUM,PORCINE 2,500 UNIT in SODIUM CHLORIDE 0.9% 250 ML IRRIGATION PRN; NITROGLYCERIN SL TABS 0.4 MG TAB SUBLINGUAL PRN; SODIUM CHLORIDE 0.9% 1,000 ML in EMPTY BAG 1 BAG IV SCH
[2021-01-20 09:20] LABS: Glucose,Whole Blood 163 mg/dL (75-99)
[2021-01-20] MEDS ORDERED: SODIUM CHLORIDE 0.9% 1,000 ML IV ONE ×2 (09:31→11:30)
[2021-01-20 09:32] LABS: Basophils % (A) 0 %; Eosinophils % (A) 0 %; HCT 43.3 % (34.0-46.0); HGB 14.3 gm/dL (11.4-16.0); Lymphocytes # (A) 2.1 k/uL (1.0-4.8); Lymphocytes % (A) 18 %; MCH 29.2 pg (25.0-35.0); MCHC 32.9 g/dL (31.0-37.0); MCV 88.8 fL (80.0-100.0); Mean Platelet Volume 6.7; Monocytes # (A) 0.7 k/uL (0-1.0); Monocytes % (A) 6 %; Neutrophils # (A) 8.9 k/uL (1.3-7.7); Neutrophils % (A) 75 %; Platelet Count 375 k/uL (150-450); RBC 4.88 m/uL (3.80-5.40); RDW 13.4 % (11.5-15.5); WBC 11.9 k/uL (3.8-10.6)
[2021-01-20 09:34] VITALS: RESP 16; TEMP 98.2
[2021-01-20 09:42] LABS: African American GFR (CKD) >90 (>60 ml/min/1.73 sqM); Anion Gap 10 mmol/L; Blood Urea Nitrogen 15 mg/dL (7-17); Calcium 10.2 mg/dL (8.4-10.2); Carbon Dioxide 26 mmol/L (22-30); Chloride 102 mmol/L (98-107); Glucose 171 mg/dL (74-99); Non-African American GFR(CKD) >90 (>60 ml/min/1.73 sqM); Potassium 4.6 mmol/L (3.5-5.1); Sodium 138 mmol/L (137-145)
[2021-01-20] MEDS ORDERED: LIDOCAINE 1% INJ 10MG/ML (20 ML MDV) ONE (10:00)
[2021-01-20] MEDS ORDERED: fentaNYL (PF) 50 MCG/ML 2 ML AMP ONE (10:01)
[2021-01-20] MEDS ORDERED: VERAPAMIL 2.5 MG/ML 2 ML AMP ONE (10:01)
[2021-01-20] MEDS ORDERED: MIDAZOLAM 2 MG/2 ML VIAL IV ONE (10:28)
[2021-01-20] MEDS ORDERED: fentaNYL (PF) 50 MCG/ML 2 ML AMP IV ONE (10:28)
[2021-01-20] MEDS ORDERED: LIDOCAINE 1% INJ 10MG/ML (20 ML MDV) SQ ONE (10:34)
[2021-01-20] MEDS ORDERED: VERAPAMIL SYRINGE (5 MG/10 ML) INTRAARTER ONE (10:35)
[2021-01-20] MEDS: NITROGLYCERIN 1000MCG/10ML SYRINGE INTRACORON ONE ×5 (10:39→11:14)
[2021-01-20] MEDS ORDERED: IOPAMIDOL-370 125ML BTL INJ ONE (11:07)
[2021-01-20] MEDS ORDERED: IOPAMIDOL-370 100ML BTL INJ ONE (11:24)
[2021-01-20] MEDS ORDERED: RX INFO: IV CONTRAST WAS GIVEN 1 EACH MISC MISCELLANE PRN (12:27)
[2021-01-20] MEDS ORDERED: ATROPINE SULFATE 0.1 MG/ML 10ML SYRINGE IV PRN (12:27)
[2021-01-20] MEDS ORDERED: MAG HYDROX/AL HYDROX/SIMETH 30 ML CUP PO PRN (12:27)
[2021-01-20] MEDS ORDERED: ZOLPIDEM 5 MG TAB PO PRN (12:27)
[2021-01-20] MEDS ORDERED: SODIUM CHLORIDE 0.9% 1,000 ML IV SCH (12:30)
[2021-01-20] MEDS ORDERED: ACETAMINOPHEN TAB 325 MG TAB ONE (15:14)
[2021-01-20 15:33] VITALS: BP 115/69; PULSE 72
[2021-01-20 15:50] LABS: Basophils % (A) 0 %; Eosinophils % (A) 0 %; HCT 37.3 % (34.0-46.0); HGB 12.3 gm/dL (11.4-16.0); Lymphocytes # (A) 2.4 k/uL (1.0-4.8); Lymphocytes % (A) 25 %; MCH 29.4 pg (25.0-35.0); MCV 89.2 fL (80.0-100.0); Mean Platelet Volume 7.2; Monocytes # (A) 0.7 k/uL (0-1.0); Monocytes % (A) 7 %; Neutrophils # (A) 6.3 k/uL (1.3-7.7); Neutrophils % (A) 66 %; Platelet Count 311 k/uL (150-450); RBC 4.18 m/uL (3.80-5.40); RDW 13.3 % (11.5-15.5); WBC 9.5 k/uL (3.8-10.6)
[2021-01-20 15:58] LABS: African American GFR (CKD) >90 (>60 ml/min/1.73 sqM); Anion Gap 7 mmol/L; Blood Urea Nitrogen 16 mg/dL (7-17); Calcium 9.2 mg/dL (8.4-10.2); Carbon Dioxide 25 mmol/L (22-30); Chloride 103 mmol/L (98-107); Glucose 139 mg/dL (74-99); Non-African American GFR(CKD) >90 (>60 ml/min/1.73 sqM); Potassium 4.7 mmol/L (3.5-5.1); Sodium 135 mmol/L (137-145)
[2021-01-20] MEDS ORDERED: PANTOPRAZOLE 40 MG TABLET PO SCH (17:30)
--- NOTE | 2021-01-20 18:53 | P.PRCINT ---
Percutaneous Coronary Int. - Percutaneous Coronary Intervention Percutaneous Coronary Intervention: PROCEDURES PERFORMED: Left heart catheterization, bilateral coronary angiography, PCI OM1 with a 2.0x12mm Beemer ONEYDA, iFR OM1, iFR LAD, intracoronary nitro INDICATION: NSTEMI, staged PCI HISTORY: Patient is a pleasant 60 year old female with history of tobacco abuse, family history of CAD who presented with chest pain approximately 2 weeks ago and was found to have inferior NSTEMI and taken to the lab nurse and underwent successful PCI of RCA. There was OM and LAD disease with recommendations for staged PCI. CONSENT:I have discussed the risks, benefits and alternative therapies for the above-mentioned procedure and for both sedation/analgesia as well as necessary blood product administration, if indicated, as they pertain to this patient. The patient has indicated understanding and acceptance of the risks and procedures discussed. PROCEDURE: After the risks, benefits and alternatives of the above mentioned procedure explained in detail with the patient, informed consent was obtained. Patient was taken to the catheterization lab and prepped and draped in usual fashion. 1% lidocaine was used to anesthetize the right radial artery. A 6- Palestinian sheath was placed in the right radial artery using modified Seldinger technique. Right coronary angiography was performed with a 5-Palestinian JR5 catheter in various views. Patient was noted to have some dynamic EKG changes even before any intervention or angiography was performed. There was a mid RCA 50-60% stenosis however this completely improved with intracoronary nitroglycerin. A 5-Palestinian FR5 catheter was inserted into the left ventricle and pressure measurements were obtained. The decision was made to perform iFR of the OM and LAD. Heparin was given for ACT> 250. The left main was engaged with a 6FR CLS 3.0 guide. A 0.014 pressure wire was advanced approximately 1 cm distal to the OM lesion. Initial iFR had some drift and therefore this was repeformed and was abnormal at 0.87. Therefore a 2.0 x 12mm Renaldo ONEYDA was advanced and deployed in the proximal to mid OM1. Preintervention there was 80% stenosis and VALDO 3 flow and post intervention there was 0% stenosis and VALDO 3 flow. Next the iFR wire was normalized again and advanced into the distal LAD and iFR was performed and was normal at 0.95. The wire and catheter were then removed. The right radial sheath was removed and a TR band was placed with hemostasis achieved. The patient tolerated the procedure well. Patient was transported back to the post catheterization holding area in stable condition. Conscious Sedation: Patient was monitored under the direct supervision of vision of myself for conscious sedation using Versed and fentanyl for a total duration of 53 minutes HEMODYNAMICS: Aortic: 92/57 LV: 87/3, LVEDP 14 SELECTIVE CORONARY ARTERIOGRAPHY: LEFT MAIN: The left main is a large caliber vessel which bifurcates into the LAD and circumflex. There is mild distal 20% left main stenosis. LEFT ANTERIOR DESCENDING CORONARY ARTERY: LAD is a large caliber vessel which wraps around the apex. There is diffuse proximal LAD 20-40% stenosis. The mid LAD has a more focal 60-70% stenosis just after and involving a small caliber diagonal 1 branch resulting in ostial diagonal 1 40-50% stenosis. LEFT CIRCUMFLEX CORONARY ARTERY: Left circumflex is a moderate caliber vessel. OM1 is small to moderate caliber and has a 80% proximal stenosis. OM2 is small caliber approximately 1.75mm and has a 50% stenosis. RIGHT CORONARY ARTERY: The right coronary artery is a large caliber vessel which gives off a PDA and PLV branch and is the dominant vessel. There is diffuse mid 20-30% stenosis and a distal RCA stent which is patent and a proximal PDA stent which is patent. There was initial vasospasm of the proximal to mid RCA resulting in 50-60% stenosis. FINAL IMPRESSION: 1. CAD as described above with 80% OM1, 50% OM2 stenosis 60-70% mid LAD. S/p staged PCI OM1 with a 2.0 x 12mm Renaldo ONEYDA and iFR LAD normal. 2. Patent RCA stents 3. Vasospasm of RCA, improved with nitroglycerin 4. Normal left sided filling pressures PLAN: 1. Aggressive risk factor modification per most recent ACC/AHA guidelines. 2. Continue dual antiplatelets for 12 months. 3. Consider vasodilators if patient has continued angina given findings of vasospasm.
[2021-01-20] MEDS ORDERED: ATORVASTATIN 80 MG TAB PO SCH (21:00)
[2021-01-20] MEDS ORDERED: METOPROLOL TARTRATE 12.5 MG TAB PO SCH (21:00)
[2021-01-21] MEDS ORDERED: VENLAFAXINE HCL ER 75 MG CAP PO SCH (09:00)
[2021-01-21] MEDS ORDERED: PRASUGREL 10 MG TAB PO SCH (09:00)
[2021-01-21] MEDS ORDERED: ASPIRIN 81 MG PO SCH (09:00)
[2021-01-21] MEDS ORDERED: NICOTINE 21MG/24HR PATCH TRANSDERM SCH (09:00)
== END 2021-01-20 16:46 | disposition home or self-care (01) ==
LOC: CATHCVL 08:39
PROVIDERS: ATTEND Internal Medicine
DX: I25.10 Atherosclerotic heart disease of native coronary artery without angina pectoris (principal); I21.3 ST elevation (STEMI) myocardial infarction of unspecified site; Z87.891 Personal history of nicotine dependence; I20.1 Angina pectoris with documented spasm; Z20.822 Contact with and (suspected) exposure to COVID-19
CPT/HCPCS: 93458; 93571; 93572; 80048; 85025; 87635; C9600; C1769 ×2; C1887; C1894; J2250; J2001; J3010; J1644; Q9967 ×2

== ENCOUNTER 2021-05-21 00:26 | Observation (INO) | payer OTHER ==
[2021-05-21] MEDS ORDERED: ONDANSETRON 4 MG/2 ML VIAL IVP STA (02:30)
[2021-05-21] MEDS ORDERED: SODIUM CHLORIDE 0.9% 1,000 ML IV STA ×3 (02:30→05:41)
--- NOTE | 2021-05-21 02:30 | ED ---
Nausea/Vomiting/Diarrhea HPI - General Chief complaint: Nausea/Vomiting/Diarrhea Stated complaint: vomitting Time Seen by Provider: 05/21/21 02:05 Source: patient, EMS Mode of arrival: EMS - Related Data Home Medications Medication Instructions Recorded Confirmed Venlafaxine HCl [Effexor XR] 75 mg PO DAILY 01/05/21 01/20/21 metFORMIN HCL 1,000 mg PO DAILY 01/05/21 01/20/21 metFORMIN HCL 500 mg PO HS 01/05/21 01/20/21 Previous Rx's Medication Instructions Recorded Aspirin 81 mg PO DAILY 30 Days #30 tab 01/08/21 Atorvastatin [Lipitor] 80 mg PO HS 30 Days #30 tab 01/08/21 Metoprolol Tartrate [Lopressor] 12.5 mg PO BID 30 Days #60 tab 01/08/21 Nicotine 21Mg/24Hr Patch [Habitrol] 1 patch TRANSDERM DAILY 30 Days 01/08/21 #30 patch Pantoprazole [Protonix] 40 mg PO AC-BID 30 Days #60 tab 01/08/21 Prasugrel [Effient] 10 mg PO DAILY 30 Days #30 tab 01/08/21 Allergies Allergy/AdvReac Type Severity Reaction Status Date / Time bupropion [From Wellbutrin] Allergy Unknown Verified 05/21/21 00:34 Review of Systems ROS Statement: Those systems with pertinent positive or pertinent negative responses have been documented in the HPI. ROS Other: All systems not noted in ROS Statement are negative. Past Medical History Past Medical History: Diabetes Mellitus, Hypertension, Myocardial Infarction ([place]) Additional Past Medical History / Comment(s): Patient states she has had about 4-5 stress tests that were all normal. History of Any Multi-Drug Resistant Organisms: None Reported Past Surgical History: Heart Catheterization With Stent Additional Past Surgical History / Comment(s): 4 stents placed Past Anesthesia/Blood Transfusion Reactions: No Reported Reaction Date of Last Stent Placement:: 01-06-21 Past Psychological History: Anxiety, Depression Smoking Status: Current some day smoker Past Alcohol Use History: None Reported Past Drug Use History: None Reported Course Vital Signs 05/21/21 05/21/21 00:30 04:25 Temperature 97.0 F L Pulse Rate 92 89 Respiratory 19 16 Rate Blood Pressure 131/78 171/91 O2 Sat by Pulse 100 95 Oximetry Medical Decision Making - Lab Data Result diagrams: 05/21/21 02:30 05/21/21 02:30 Lab Results 05/21/21 05/21/21 05/21/21 Range/Units 02:30 02:30 02:30 WBC 16.0 H (3.8-10.6) k/uL RBC 5.02 (3.80-5.40) m/uL Hgb 13.9 (11.4-16.0) gm/dL Hct 43.7 (34.0-46.0) % MCV 87.1 (80.0-100.0) fL MCH 27.8 (25.0-35.0) pg MCHC 31.9 (31.0-37.0) g/dL RDW 13.9 (11.5-15.5) % Plt Count 330 (150-450) k/uL MPV 6.9 Neutrophils % 88 % Lymphocytes % 5 % Monocytes % 5 % Eosinophils % 1 % Basophils % 1 % Neutrophils # 14.0 H (1.3-7.7) k/uL Lymphocytes # 0.8 L (1.0-4.8) k/uL Monocytes # 0.8 (0-1.0) k/uL Eosinophils # 0.2 (0-0.7) k/uL Basophils # 0.1 (0-0.2) k/uL Sodium 139 (137-145) mmol/L Potassium 4.7 (3.5-5.1) mmol/L Chloride 102 (98-107) mmol/L Carbon Dioxide 26 (22-30) mmol/L Anion Gap 11 mmol/L BUN 20 H (7-17) mg/dL Creatinine 0.68 (0.52-1.04) mg/dL Est GFR (CKD-EPI)AfAm >90 (>60 ml/min/1.73 sqM) Est GFR (CKD-EPI)NonAf >90 (>60 ml/min/1.73 sqM) Glucose 172 H (74-99) mg/dL Calcium 9.8 (8.4-10.2) mg/dL Total Bilirubin 0.8 (0.2-1.3) mg/dL AST 27 (14-36) U/L ALT 24 (4-34) U/L Alkaline Phosphatase 184 H (38-126) U/L Total Protein 7.7 (6.3-8.2) g/dL Albumin 4.6 (3.5-5.0) g/dL Lipase 148 (23-300) U/L Urine Color Yellow Urine Appearance Cloudy H (Clear) Urine pH 5.5 (5.0-8.0) Ur Specific [place] 1.031 (1.001-1.035) Urine Protein 1+ H (Negative) Urine Glucose (UA) Trace H (Negative) Urine Ketones 1+ H (Negative) Urine Blood Small H (Negative) Urine Nitrite Negative (Negative) Urine Bilirubin 1+ H (Negative) Urine Urobilinogen 2.0 (<2.0) mg/dL Ur Leukocyte Esterase Trace H (Negative) Urine RBC 8 H (0-5) /hpf Urine WBC 2 (0-5) /hpf Ur Squamous Epith Cells 2 (0-4) /hpf Urine Bacteria Occasional H (None) /hpf Hyaline Casts 7 H (0-2) /lpf Urine Mucus Many H (None) /hpf Disposition Clinical Impression: Dehydration, Gastroenteritis Disposition: [facility] Condition: Good Instructions (If sedation given, give patient instructions): Acute Nausea and Vomiting (ED) Is patient prescribed a controlled substance at d/c from ED?: No Referrals: Ata Avery MD [Primary Care Provider] - 1-2 days
[2021-05-21 03:37] LABS: Basophils # (A) 0.1 k/uL (0-0.2); Basophils % (A) 1 %; Eosinophils # (A) 0.2 k/uL (0-0.7); Eosinophils % (A) 1 %; HCT 43.7 % (34.0-46.0); HGB 13.9 gm/dL (11.4-16.0); Lymphocytes # (A) 0.8 k/uL (1.0-4.8); Lymphocytes % (A) 5 %; MCH 27.8 pg (25.0-35.0); MCHC 31.9 g/dL (31.0-37.0); MCV 87.1 fL (80.0-100.0); Mean Platelet Volume 6.9; Monocytes # (A) 0.8 k/uL (0-1.0); Monocytes % (A) 5 %; Neutrophils % (A) 88 %; Platelet Count 330 k/uL (150-450); RBC 5.02 m/uL (3.80-5.40); RDW 13.9 % (11.5-15.5)
[2021-05-21 03:42] LABS: Appearance,Urine Cloudy (Clear); Bacteria,Urine Occasional /hpf; Bilirubin,Urine 1+ (Negative); Blood,Urine Small (Negative); Color,Urine Yellow; Glucose,Urine (UA) Trace (Negative); Hyaline Casts,Urine 7 /lpf (0-2); Ketones,Urine 1+ (Negative); Leukocyte Esterase,Urine Trace (Negative); Mucus,Urine Many /hpf; Nitrite,Urine Negative (Negative); PH, Urine 5.5 (5.0-8.0); Protein,Urine 1+ (Negative); RBC,Urine 8 /hpf (0-5); Specific Gravity,Urine 1.031 (1.001-1.035); Squamous Epithelial Cell,Urine 2 /hpf (0-4); WBC,Urine 2 /hpf (0-5)
[2021-05-21 04:10] LABS: ALT 24 U/L (4-34); AST 27 U/L (14-36); African American GFR (CKD) >90 (>60 ml/min/1.73 sqM); Albumin 4.6 g/dL (3.5-5.0); Alkaline Phosphatase 184 U/L (38-126); Anion Gap 11 mmol/L; Blood Urea Nitrogen 20 mg/dL (7-17); Calcium 9.8 mg/dL (8.4-10.2); Carbon Dioxide 26 mmol/L (22-30); Chloride 102 mmol/L (98-107); Glucose 172 mg/dL (74-99); Lipase 148 U/L (23-300); Non-African American GFR(CKD) >90 (>60 ml/min/1.73 sqM); Sodium 139 mmol/L (137-145); Total Bilirubin 0.8 mg/dL (0.2-1.3); Total Protein 7.7 g/dL (6.3-8.2)
[2021-05-21 04:48] LABS: Potassium 4.7 mmol/L (3.5-5.1)
[2021-05-21] MEDS ORDERED: DIPHENOX-ATROP STARTER PACK 8 TAB BTL PO STA (04:52)
[2021-05-21] MEDS ORDERED: ONDANSETRON 4 MG ODT STARTER PACK 2 TAB BTL PO STA (04:52)
[2021-05-21] MEDS ORDERED: NALOXONE 0.4 MG/ML 1 ML VIAL IV PRN (05:41)
[2021-05-21] MEDS ORDERED: MORPHINE SULFATE 4 MG/ML SYRINGE IV PRN (05:41)
[2021-05-21] MEDS ORDERED: ONDANSETRON 4 MG/2 ML VIAL IVP PRN (05:41)
[2021-05-21] MEDS ORDERED: PROCHLORPERAZINE INJ 10 MG/2 ML VIAL IVP STA (05:41)
[2021-05-21] MEDS ORDERED: PANTOPRAZOLE 40 MG/10 ML VIAL IVP STA (05:41)
[2021-05-21] MEDS ORDERED: diphenhydrAMINE 50 MG/ML 1 ML VIAL IVP STA (05:41)
[2021-05-21] MEDS ORDERED: LORazepam 2 MG/ML INJ IV PRN (05:41)
[2021-05-21] MEDS ORDERED: PROCHLORPERAZINE INJ 10 MG/2 ML VIAL IVP PRN (05:41)
[2021-05-21] MEDS ORDERED: SODIUM CHLORIDE 0.9% 1,000 ML IV SCH (05:45)
[2021-05-21] MEDS ORDERED: PANTOPRAZOLE 40 MG/10 ML VIAL IVP SCH (09:00)
[2021-05-21 12:11] VITALS: BP 117/82; PULSE 97; RESP 18; TEMP 98.7
--- NOTE | 2021-05-21 13:34 | P.HPIM ---
History of Present Illness H&P Date: 05/21/21 Chief Complaint: Vomiting 61-year-old woman with a medical history of CAD, hypertension, diabetes, nicotine dependence, marijuana use presented for evaluation of emesis. Patient says that she had her dinner yesterday, then had large volume emesis. Had another episode of emesis in the middle the night, prompting concern. Specifically, she said that she had previously had an ID and during her ID she also had emesis, therefore, she came to the emergency room for evaluation. She declines having chest pain at this time, but does report having chest pain at the time of her previous ID. She denies fevers, chills, chest pain, palpitations, cough, sick be, abdominal pain, diarrhea, constipation, dysuria, dyschezia, numbness/weakness of extremities. In the emergency room, patient was afebrile, 131/78, heart rate 92, 100% on room air. CBC was remarkable for white blood cell count 16, chemistries remarkable for BUN of 20, mildly elevated alkaline phosphatase. UA showed 1+ protein, trace glucose, 1+ ketones, small amount of blood, negative nitrites, 1+ bilirubin, trace leukocyte esterase, 8 red blood cells, occasional bacteria, 7 hyaline casts. EKG demonstrated normal sinus rhythm with evidence of left atrial enlargement, old Q waves in leads 3 and aVF consistent with old inferior infarct. All Systems reviewed and pertinent positives and negatives noted in HPI, all other symptoms are negative Gen: awake, alert HEENT: normocephalic, atraumatic, good hearing acuity, moist mucous membranes Resp: good air exchange, breathing comfortably with no accessory muscle use, clear to auscultation bilaterally CVS: good distal perfusion x 4, regular rate and rhythm without murmurs GI: soft, NTTP, ND : no SPT, no CVAT, kay catheter not present MSK: no pitting edema, no clubbing Neuro: non-focal, moving all extremities Psych: cooperative, euthymic mood Labs and imaging reviewed as above Assessment/plan: Emesis likely secondary to gastroenteritis -Admitted to observation with telemetry -Emesis resolved with IV fluids and antiemetics -Continue to monitor the patient to rule out elevated troponins -Patient feels back to her baseline -Recommended outpatient GI referral for these recurrent bouts of emesis CAD Hypertension Diabetes Nicotine dependence Marijuana use -Home medications reviewed and reconciled -Nicotine and marijuana cessation advised Patient is a full code Past Medical History Past Medical History: Diabetes Mellitus, Hypertension, Myocardial Infarction ([place]) Additional Past Medical History / Comment(s): Patient states she has had about 4-5 stress tests that were all normal. History of Any Multi-Drug Resistant Organisms: None Reported Past Surgical History: Heart Catheterization With Stent Additional Past Surgical History / Comment(s): 4 stents placed Past Anesthesia/Blood Transfusion Reactions: No Reported Reaction Date of Last Stent Placement:: 01-06-21 Past Psychological History: Anxiety, Depression Smoking Status: Current some day smoker Past Alcohol Use History: None Reported Past Drug Use History: None Reported Medications and Allergies Home Medications Medication Instructions Recorded Confirmed Type Venlafaxine HCl [Effexor XR] 75 mg PO DAILY 01/05/21 05/21/21 History metFORMIN HCL 1,000 mg PO DAILY 01/05/21 05/21/21 History metFORMIN HCL 500 mg PO HS 01/05/21 05/21/21 History Aspirin 81 mg PO DAILY 30 Days #30 tab 01/08/21 05/21/21 Rx Atorvastatin [Lipitor] 80 mg PO HS 30 Days #30 tab 01/08/21 05/21/21 Rx Prasugrel [Effient] 10 mg PO DAILY 30 Days #30 tab 01/08/21 05/21/21 Rx Benazepril [Lotensin] 10 mg PO DAILY 05/21/21 05/21/21 History Metoprolol Tartrate [Lopressor] 12.5 mg PO BID 05/21/21 05/21/21 History Ondansetron [Zofran] 4 mg PO Q8HR PRN #30 tab 05/21/21 Rx Pantoprazole [Protonix] 40 mg PO DAILY 05/21/21 05/21/21 History Allergies Allergy/AdvReac Type Severity Reaction Status Date / Time bupropion [From Wellbutrin] Allergy Unknown Verified 05/21/21 12:10 Physical Exam Osteopathic Statement: *. No significant issues noted on an osteopathic structural exam other than those noted in the History and Physical/Consult. Vitals: Vital Signs Temp Pulse Resp BP Pulse Ox 05/21/21 12:10 98.7 F 97 18 117/82 97 05/21/21 04:25 89 16 171/91 95 05/21/21 00:30 97.0 F L 92 19 131/78 100 Intake and Output 05/20/21 05/21/21 05/21/21 22:59 06:59 14:59 Other: Weight 81.193 kg Results CBC & Chem 7: 05/21/21 02:30 05/21/21 02:30 Labs: Abnormal Lab Results - Last 24 Hours (Table) 05/21/21 05/21/21 05/21/21 Range/Units 02:30 02:30 02:30 WBC 16.0 H (3.8-10.6) k/uL Neutrophils # 14.0 H (1.3-7.7) k/uL Lymphocytes # 0.8 L (1.0-4.8) k/uL BUN 20 H (7-17) mg/dL Glucose 172 H (74-99) mg/dL Alkaline Phosphatase 184 H (38-126) U/L Urine Appearance Cloudy H (Clear) Urine Protein 1+ H (Negative) Urine Glucose (UA) Trace H (Negative) Urine Ketones 1+ H (Negative) Urine Blood Small H (Negative) Urine Bilirubin 1+ H (Negative) Ur Leukocyte Esterase Trace H (Negative) Urine RBC 8 H (0-5) /hpf Urine Bacteria Occasional H (None) /hpf Hyaline Casts 7 H (0-2) /lpf Urine Mucus Many H (None) /hpf
--- NOTE | 2021-05-21 13:38 | P.DS ---
Providers Date of admission: 05/21/21 05:41 Expected date of discharge: 05/21/21 Attending physician: Greg Rosario MD Primary care physician: [facility] Course: 61-year-old woman with a medical history of CAD, hypertension, diabetes, nicotine dependence, marijuana use presented for evaluation of emesis. In the emergency room, patient was afebrile, 131/78, heart rate 92, 100% on room air. CBC was remarkable for white blood cell count 16, chemistries remarkable for BUN of 20, mildly elevated alkaline phosphatase. UA showed 1+ protein, trace glucose, 1+ ketones, small amount of blood, negative nitrites, 1+ bilirubin, trace leukocyte esterase, 8 red blood cells, occasional bacteria, 7 hyaline casts. EKG demonstrated normal sinus rhythm with evidence of left atrial enlargement, old Q waves in leads 3 and aVF consistent with old inferior infarct. Emesis likely secondary to gastroenteritis -Admitted to observation with telemetry, emesis resolved with IV fluids and antiemetics. After short observation, patient felt back to her baseline. I advised her to remain hydrated at home, as well as outpatient GI referral for these recurrent bouts of emesis. She should return to the hospital she's having any additional trouble keeping down food, or if she develops chest pain. -Emesis resolved with IV fluids and antiemetics -Continue to monitor the patient to rule out elevated troponins -Patient feels back to her baseline -Recommended outpatient GI referral for these recurrent bouts of emesis CAD Hypertension Diabetes Nicotine dependence Marijuana use -Home medications reviewed and reconciled, no changes made on med rec except for the addition of Zofran -Nicotine and marijuana cessation advised Gen: awake, alert HEENT: normocephalic, atraumatic, good hearing acuity, moist mucous membranes Resp: good air exchange, breathing comfortably with no accessory muscle use, clear to auscultation bilaterally CVS: good distal perfusion x 4, regular rate and rhythm without murmurs GI: soft, NTTP, ND : no SPT, no CVAT, kay catheter not present MSK: no pitting edema, no clubbing Neuro: non-focal, moving all extremities Psych: cooperative, euthymic mood Patient Condition at Discharge: Good Plan - Discharge Summary New Discharge Prescriptions: New Ondansetron [Zofran] 4 mg PO Q8HR PRN #30 tab PRN Reason: Nausea Continue metFORMIN HCL 1,000 mg PO DAILY Venlafaxine HCl [Effexor XR] 75 mg PO DAILY Prasugrel [Effient] 10 mg PO DAILY 30 Days #30 tab metFORMIN HCL 500 mg PO HS Aspirin 81 mg PO DAILY 30 Days #30 tab Atorvastatin [Lipitor] 80 mg PO HS 30 Days #30 tab No Action Benazepril [Lotensin] 10 mg PO DAILY Pantoprazole [Protonix] 40 mg PO DAILY Metoprolol Tartrate [Lopressor] 12.5 mg PO BID Discharge Medication List Venlafaxine HCl [Effexor XR] 75 mg PO DAILY 01/05/21 [History] metFORMIN HCL 1,000 mg PO DAILY 01/05/21 [History] metFORMIN HCL 500 mg PO HS 01/05/21 [History] Aspirin 81 mg PO DAILY 30 Days #30 tab 01/08/21 [Rx] Atorvastatin [Lipitor] 80 mg PO HS 30 Days #30 tab 01/08/21 [Rx] Prasugrel [Effient] 10 mg PO DAILY 30 Days #30 tab 01/08/21 [Rx] Benazepril [Lotensin] 10 mg PO DAILY 05/21/21 [History] Metoprolol Tartrate [Lopressor] 12.5 mg PO BID 05/21/21 [History] Ondansetron [Zofran] 4 mg PO Q8HR PRN #30 tab 05/21/21 [Rx] Pantoprazole [Protonix] 40 mg PO DAILY 05/21/21 [History] Follow up Appointment(s)/Referral(s): Ata Avery MD [Primary Care Provider] - 1-2 days Michelle Abreu MD [STAFF PHYSICIAN] - 4 Weeks (Pt having recurrent episodes of emesis.) Patient Instructions/Handouts: Acute Nausea and Vomiting (ED) Discharge Disposition: HOME SELF-CARE
== END 2021-05-21 12:05 | disposition home or self-care (01) ==
LOC: EC 00:26 → 6NMEDSUR 05:41 → INTOOBSV 05:41 → 6NMEDSUR 09:38 → UNDODISIN 12:05
PROVIDERS: ADMIT Internal Medicine; ATTEND Internal Medicine
DX: R11.2 Nausea with vomiting, unspecified (principal); R74.8 Abnormal levels of other serum enzymes; E86.0 Dehydration; E11.9 Type 2 diabetes mellitus without complications; I11.9 Hypertensive heart disease without heart failure; R19.7 Diarrhea, unspecified; I25.2 Old myocardial infarction; F32.A Depression, unspecified; F41.9 Anxiety disorder, unspecified; I25.10 Atherosclerotic heart disease of native coronary artery without angina pectoris; F17.200 Nicotine dependence, unspecified, uncomplicated; Z53.29 Procedure and treatment not carried out because of patient's decision for other reasons; Z79.899 Other long term (current) drug therapy; Z79.84 Long term (current) use of oral hypoglycemic drugs; Z79.82 Long term (current) use of aspirin; Z79.02 Long term (current) use of antithrombotics/antiplatelets; Z88.8 Allergy status to other drugs, medicaments and biological substances; Z95.5 Presence of coronary angioplasty implant and graft; Z71.6 Tobacco abuse counseling; Z71.9 Counseling, unspecified
CPT/HCPCS: 96376; 96361; 96374; 96375; 99285; 36415; 93005; 80053; 83690; 85025; 81001; G0378; J1200; J0780; J2405; S0119; C9113

== ENCOUNTER → 2022-02-22 | Day surgery (SDC) | payer OTHER ==
[~2022-02-22] MED LIST changes: +ATORVASTATIN 80 MG TAB PO STA; +HEPARIN SODIUM 1,000 UN/ML (10ML VL) IV ONE; +HEPARIN SODIUM 1,000 UN/ML (10ML VL) ONE; +IOPAMIDOL-370 125ML BTL INJ ONE; +LIDOCAINE 1% INJ 10MG/ML (5 ML VIAL-PF) SQ ONE; -SODIUM CHLORIDE 0.9% 1,000 ML in EMPTY BAG 1 BAG IV SCH; +VERAPAMIL 2.5 MG/ML 2 ML AMP ONE; +VERAPAMIL SYRINGE (5 MG/10 ML) INTRAARTER ONE; +fentaNYL (PF) 50 MCG/ML 2 ML AMP IV ONE; +fentaNYL (PF) 50 MCG/ML 2 ML AMP ONE
[2022-02-22] MEDS: SODIUM CHLORIDE 0.9% 1,000 ML in EMPTY BAG 1 BAG IV SCH ×2 (09:20→09:35)
[2022-02-22 09:34] LABS: Glucose,Whole Blood 141 mg/dL (70-110)
[2022-02-22 09:49] LABS: Basophils % (A) 0 %; Eosinophils % (A) 0 %; HCT 42.3 % (34.0-46.0); HGB 13.8 gm/dL (11.4-16.0); Lymphocytes # (A) 1.4 k/uL (1.0-4.8); Lymphocytes % (A) 16 %; MCH 28.8 pg (25.0-35.0); MCHC 32.7 g/dL (31.0-37.0); Mean Platelet Volume 7.4; Monocytes # (A) 0.5 k/uL (0-1.0); Monocytes % (A) 5 %; Neutrophils # (A) 6.6 k/uL (1.3-7.7); Neutrophils % (A) 77 %; Platelet Count 256 k/uL (150-450); RDW 13.9 % (11.5-15.5); WBC 8.6 k/uL (3.8-10.6)
[2022-02-22 09:53] VITALS: RESP 16; TEMP 97.7
[2022-02-22 09:53] LABS: African American GFR (CKD) >90 (>60 ml/min/1.73 sqM); Anion Gap 8 mmol/L; Blood Urea Nitrogen 11 mg/dL (7-17); Carbon Dioxide 23 mmol/L (22-30); Chloride 106 mmol/L (98-107); Glucose 151 mg/dL (74-99); Non-African American GFR(CKD) >90 (>60 ml/min/1.73 sqM); Potassium 4.1 mmol/L (3.5-5.1); Sodium 137 mmol/L (137-145)
[2022-02-22] MEDS: MIDAZOLAM 2 MG/2 ML VIAL IV ONE ×2 (10:42→10:47)
--- NOTE | 2022-02-22 11:31 | P.CARDCATH ---
Description of Procedure: PROCEDURES PERFORMED: Left heart catheterization, bilateral coronary angiography, iFR LAD, diagonal 1, OM1 INDICATION: Abnormal stress test, history of CAD CONSENT:I have discussed the risks, benefits and alternative therapies for the above-mentioned procedure and for both sedation/analgesia as well as necessary blood product administration, if indicated, as they pertain to this patient. The patient has indicated understanding and acceptance of the risks and procedures discussed. PROCEDURE: After the risks, benefits and alternatives of the above mentioned procedure explained in detail with the patient, informed consent was obtained. Patient was taken to the catheterization lab and prepped and draped in usual fashion. 1% lidocaine was used to anesthetize the right radial artery. A 6- [place] sheath was placed in the right radial artery using modified Seldinger technique. Left coronary angiography was performed with a 5-[place] JL 3.5 catheter and right coronary angiography was performed with a 5-[place] JR5 catheter in various views. A 5-[place] FR5 catheter was inserted into the left ventricle and pressure measurements were obtained. The decision was made to perform iFR of the LAD and OM 2. Heparin was given. A 6-[place] CLS 3.5 guide was used to engage the left main. A 0.014 pressure wire was advanced into the left main and normalized. The pressure wire was then advanced 1 cm distal to the OM 1 lesion and iFR was performed and was normal at 0.93. The wire was advanced into the diagonal 1 branch and iFR was normal at 0.94. Finally the wire was advanced into the mid LAD 1 cm distal to the mid LAD lesion and iFR was normal at 0.96. The right radial sheath was removed and a TR band was placed with hemostasis achieved. The patient tolerated the procedure well. Patient was transported back to the post catheterization holding area in stable condition. Conscious Sedation: Patient was monitored under the direct supervision of vision of myself for conscious sedation using Versed and fentanyl for a total duration of 37 minutes HEMODYNAMICS: Aorta: 124/73 LV: 139/5, LVEDP 22 SELECTIVE CORONARY ARTERIOGRAPHY: LEFT MAIN: The left main is a large caliber vessel which bifurcates into the LAD and circumflex. There is no significant stenosis. LEFT ANTERIOR DESCENDING CORONARY ARTERY: LAD is a large caliber vessel which wraps around to the apex. There is diffuse proximal 20-30% LAD stenosis. At the level of diagonal 1 there is a Ricardo 0, 1, 1 lesion with a 50% diagonal 1 stenosis and 60% mid LAD stenosis. There is diffuse 10- 30% stenosis of the remainder of the LAD. LEFT CIRCUMFLEX CORONARY ARTERY: Left circumflex is a moderate caliber vessel. There is a proximal OM 1 stents with 50-60% in-stent stenosis as well as mid and distal OM 1 30 to 40% stenosis. OM2 is a small caliber vessel with 70% proximal stenosis. RIGHT CORONARY ARTERY: The right coronary artery is a large caliber vessel which gives off a PDA and PLV branch and is the dominant vessel. There is mid RCA 20- 30% stenosis and a distal RCA and which is patent. The proximal PDA has a patent stent however at the distal edge of the stent there is a 70% stenosis. This is noted to be small caliber at this level. FINAL IMPRESSION: 1. Multivessel CAD as described above including patent distal RCA stent, 70% PDA in-stent stenosis, OM 1 50-60% in-stent stenosis, mid LAD 60% stenosis and diagonal 150% stenosis. 2. iFR mLAD, diagonal 1, OM1 normal 3. Elevated left sided filling pressures PLAN: 1. Aggressive risk factor modification per most recent ACC/AHA guidelines. 2. iFR of OM 2, diagonal 1 and mid LAD are noted to be normal. Patient not having obvious angina-type symptoms. Especially given the fact that small caliber stents have had in-stent stenosis within the course of 1 year and given LAD lesion is at a bifurcation no current indication for stenting. Distal PDA stent has in-stent stenosis however small caliber and not having obvious angina- type symptoms and therefore medical therapy.
[2022-02-22 13:53] VITALS: BP 128/66; PULSE 70
== END ==
LOC: CATHCVL 08:52
PROVIDERS: ATTEND Internal Medicine
DX: I25.10 Atherosclerotic heart disease of native coronary artery without angina pectoris (principal); R94.39 Abnormal result of other cardiovascular function study; I10 Essential (primary) hypertension; E78.5 Hyperlipidemia, unspecified; E11.9 Type 2 diabetes mellitus without complications; Z72.0 Tobacco use; Z88.8 Allergy status to other drugs, medicaments and biological substances; Z79.84 Long term (current) use of oral hypoglycemic drugs; Z79.899 Other long term (current) drug therapy
CPT/HCPCS: 93458; 93799; 80048; 85025; C1887; C1769 ×2; C1894; J2250; J2001; J3010; J1644; Q9967

== ENCOUNTER → 2022-10-09 | Outpatient (CLI) | payer OTHER ==
--- NOTE | 2022-10-10 23:42 | MR ---
EXAMINATION TYPE: MR iac wo/w con DATE OF EXAM: 10/09/2022 9:53 PM CLINICAL INDICATION:Female, 62 years old with history of H90.A21; COMPARISON: None TECHNIQUE: Multi planar, multi sequence imaging was performed through the brain. Specialized thin s equences were obtained through the internal auditory canals. Pre-and post gadolinium sequences were obtained. MR contrast: IV Contrast: 6 cc Gadavist FINDINGS: The flynn-white junctions, ventricular system, and cisterns appear unremarkable. Midline structures s how no abnormality. Diffusion-weighted imaging shows no evidence of restricted diffusion. The suscept ibility weighted images do not reveal any evidence for micro-hemorrhage. The bone marrow signal is within normal limits. Paranasal sinuses and mastoid air cells: Mild scattered paranasal sinus disease. Visualized orbits: Orbital contents are intact. After administration of gadolinium, no abnormal enhancement is seen. The internal auditory canal sequences demonstrate no significant irregularity. The 7th cranial nerve s, 8 cranial nerves, and cerebellar pontine angles appear unremarkable. After the administration shelly olinium, no abnormal enhancement is seen within the internal auditory canals. Vascular loop: None. IMPRESSION: No evidence of intracranial mass nor acute/subacute CVA. No evidence of internal auditory canal abnormality.
== END | disposition home or self-care (01) ==
LOC: RADMRIMAIN 20:45
PROVIDERS: ATTEND Otolaryngology
DX: H90.A21 Sensorineural hearing loss, unilateral, right ear, with restricted hearing on the contralateral side (principal)
CPT/HCPCS: 70553; A9585